=== PATIENT | female | born 1980 | race American Indian/Alaskan Native ===

== ENCOUNTER 2016-06-27 16:47 | Emergency (ER) | payer MEDICAID ==
[2016-06-27 16:47] VITALS: BMI 47.7
[2016-06-27 17:21] VITALS: BP 144/102; PULSE 104; RESP 20; TEMP 98.6; O2SAT 99
--- NOTE | 2016-06-27 18:01 | ED PDOC ---
HPI: Female Pain Time Seen by Provider: 06/27/16 17:42 Chief Complaint (Nursing): Female Genitourinary Chief Complaint (Provider): vaginal bleeding History Per: Patient (is female who presents for evaluation of persistent vaginal bleeding. It started 4 days ago as dried blood. Over the past 3 days she has notice blood only on wiping. She denies injuries or overexertion ( except for packing boxes for a move). Her last sexual activity was 2 days prior to onset of bleeding. ) Past Medical History Reviewed: Historical Data, Nursing Documentation, Vital Signs Vital Signs: Last Vital Signs Temp 98.6 F 06/27/16 17:20 Pulse 104 H 06/27/16 17:20 Resp 20 06/27/16 17:20 BP 144/102 H 06/27/16 17:20 Pulse Ox 99 06/27/16 17:20 - Medical History PMH: No Chronic Diseases, Mitral Valve Prolapse - Family History Family History: States: No Known Family Hx - Living Arrangements Living Arrangements: With Family - Social History Current smoker - smoking cessation education provided: No Alcohol: Social Drugs: Denies - Allergies Allergies/Adverse Reactions: Allergies Allergy/AdvReac Type Severity Reaction Status Date / Time No Known Allergies Allergy Verified 06/27/16 17:19 Review of Systems ROS Statement: Except As Marked, All Systems Reviewed And Found Negative Constitutional: Negative for: Fever, Chills Gastrointestinal: Negative for: Nausea, Vomiting, Abdominal Pain Genitourinary Female: Positive for: Vaginal Bleeding. Negative for: Dysuria, Frequency Physical Exam - Reviewed Nursing Documentation Reviewed: Yes Vital Signs Reviewed: Yes - Physical Exam Appears: Positive for: Well, Non-toxic, No Acute Distress Head Exam: Positive for: ATRAUMATIC, NORMAL INSPECTION, NORMOCEPHALIC Skin: Positive for: Normal Color, Warm, DRY Eye Exam: Positive for: EOMI, Normal appearance, PERRL ENT: Positive for: Normal ENT Inspection Neck: Positive for: Normal, Painless ROM Cardiovascular/Chest: Positive for: Regular Rate, Rhythm Respiratory: Positive for: CNT, Normal Breath Sounds Gastrointestinal/Abdominal: Positive for: Normal Exam, Bowel Sounds, Soft Back: Positive for: Normal Inspection Extremity: Positive for: Normal ROM Neurologic/Psych: Positive for: Alert, Oriented - Laboratory Results Result Diagrams: 06/27/16 18:05 04/05/17 19:01 - ECG O2 Sat by Pulse Oximetry: 99 Disposition - Clinical Impression Clinical Impression: Vaginal bleeding in patient at less than 20 weeks gestation - Patient ED Disposition Is Patient to be Admitted: No Doctor Will See Patient In The: Office Counseled Patient/Family Regarding: Diagnosis, Need For Followup - Disposition Disposition: Routine/Home Disposition Time: 21:33 Condition: STABLE Instructions: First Trimester Vaginal Bleed (ED) - POA Present On Arrival: None
[2016-06-27 19:14] LABS: BASO # 0.1 K/uL (0.0-0.2); BASO % 0.5 % (0.0-2.0); EOS # 0.2 K/uL (0.0-0.7); EOS % 2.1 % (0.0-4.0); HEMATOCRIT 35.1 % (34.0-47.0); LYMPH # 1.9 K/uL (1.0-4.3); LYMPH % 18.3 % (20.0-40.0); MEAN CELL VOLUME 79.9 fl (81.0-99.0); MEAN CORPUSCULAR HEMOGLOBIN 25.6 pg (27.0-31.0); MEAN CORPUSCULAR HGB CONC 32.1 g/dL (33.0-37.0); MEAN PLATELET VOLUME 7.9 fl (7.2-11.7); MONO # 0.7 K/uL (0.0-0.8); MONO % 7.2 % (0.0-10.0); NEUT # 7.4 K/uL (1.8-7.0); NEUT % 71.9 % (50.0-75.0); RED CELL DISTRIBUTION WIDTH 15.5 % (11.5-14.5); WHITE BLOOD COUNT 10.4 K/uL (4.8-10.8)
[2016-06-27 19:26] LABS: BLOOD UREA NITROGEN 14 mg/dl (7-17); CALCIUM 8.8 mg/dL (8.4-10.2); CARBON DIOXIDE 22 mmol/L (22-30); CHLORIDE 103 mmol/L (98-107); GFR AFRICAN-AMERICAN > 60; GLUCOSE,RANDOM 82 mg/dL (65-105); SODIUM 140 mmol/l (132-148)
[2016-06-27 19:33] LABS: POTASSIUM 5.6 MMOL/L (3.6-5.0)
--- NOTE | 2016-06-27 21:03 | US ---
EXAM: US , Transvaginal CLINICAL HISTORY: 36 years old, female; Signs and symptoms; Lmp or gestational age (in weeks): 05/08/16; Antepartum complications; Hemorrhage; ; Additional info: Vaginal bleeding, 7 weeks by date TECHNIQUE: Real-time transvaginal obstetrical ultrasound of the maternal pelvis and a first trimester with image documentation. Transvaginal imaging was used for better evaluation of the fetus and adnexa. EXAM DATE/TIME: 06/27/2016 5:51 PM COMPARISON: There are no prior studies for comparison. FINDINGS: Uterus: Uterus measures approximately 10 x 6 x 7 cm. Cervix measures approximately 5 cm in length. There is a small nabothian cyst in the cervix. There is a 2.3 x 1.8 cm partially calcified posterior fibroid. Gestation: There is a single intrauterine gestation. Gestational sac has mean diameter 9.9 mm. pole and yolk sac are not yet visible. Right ovary: Right ovary measures approximately 2.64 x 1.79 x 2.56 cm.There are multiple small follicles. There is expected blood flow on Doppler imaging Left ovary: Left ovary could not be identified. Adnexa: There are no adnexal masses. There is no free fluid IMPRESSION: Intrauterine gestation too early to date
== END 2016-06-27 21:57 | disposition home or self-care (01) ==
LOC: H.ER 16:47
DX: O20.9 Hemorrhage in early pregnancy, unspecified (principal)

== ENCOUNTER 2016-07-04 22:12 | Observation (INO) | payer SELFPAY ==
[2016-07-04 22:12] VITALS: BMI 47.7
[2016-07-04 22:46] VITALS: BP 140/94; PULSE 103; RESP 16; TEMP 98.5; O2SAT 100
--- NOTE | 2016-07-04 23:23 | ED PDOC ---
HPI: Female Pain Time Seen by Provider: 07/04/16 23:02 Chief Complaint (Nursing): Female Genitourinary Chief Complaint (Provider): Vaginal bleeding History Per: Patient History/Exam Limitations: no limitations Onset/Duration Of Symptoms: Days (Today) Additional Complaint(s): Vaginal bleeding today. More then last time. No pelvic pain, dyspnea, nausea, vomit, diarrhea, dizziness. Here 1 week ago. Is 8 wks preg. Past Medical History Reviewed: Nursing Documentation, Vital Signs Vital Signs: Last Vital Signs Temp 98.5 F 07/04/16 22:44 Pulse 103 H 07/04/16 22:44 Resp 16 07/04/16 22:44 BP 140/94 H 07/04/16 22:44 Pulse Ox 100 07/04/16 22:44 - Medical History PMH: No Chronic Diseases, Mitral Valve Prolapse - Surgical History Surgical History: No Surg Hx - Family History Family History: States: Unknown Family Hx - Social History Current smoker - smoking cessation education provided: No Alcohol: None Drugs: Denies - Allergies Allergies/Adverse Reactions: Allergies Allergy/AdvReac Type Severity Reaction Status Date / Time No Known Allergies Allergy Verified 06/27/16 17:19 Review of Systems ROS Statement: Except As Marked, All Systems Reviewed And Found Negative Genitourinary Female: Positive for: Vaginal Bleeding Physical Exam - Reviewed Nursing Documentation Reviewed: Yes Vital Signs Reviewed: Yes - Physical Exam Appears: Positive for: Well, Non-toxic, No Acute Distress Head Exam: Positive for: ATRAUMATIC, NORMAL INSPECTION, NORMOCEPHALIC Skin: Positive for: Normal Color, Warm, DRY Eye Exam: Positive for: EOMI, Normal appearance, PERRL ENT: Positive for: Normal ENT Inspection Neck: Positive for: Normal, Painless ROM Cardiovascular/Chest: Positive for: Regular Rate, Rhythm Respiratory: Positive for: CNT, Normal Breath Sounds Gastrointestinal/Abdominal: Positive for: Normal Exam, Bowel Sounds, Soft. Negative for: Tenderness Back: Positive for: Normal Inspection. Negative for: L CVA Tenderness, R CVA Tenderness Extremity: Positive for: Normal ROM. Negative for: Tenderness, Pedal Edema Neurologic/Psych: Positive for: Alert, Oriented - ECG O2 Sat by Pulse Oximetry: 100 - Progress ED Course And Treament: 2340: Dr. Garsia to fu on labs and imaging. ED OBSERVATION Date of observation admission: 07/04/16 Time of observation admission: 23:23 - Observation admission statement Patient is being placed in observation because:: vaginal bleeding - Goals of Observation Goals of observation are:: bleeding eval Disposition - Clinical Impression Clinical Impression: Vaginal bleeding in patient at less than 20 weeks gestation - Patient ED Disposition Is Patient to be Admitted: Transfer of Care - Disposition Disposition: Transfer of Care Disposition Time: 23:24 Condition: STABLE Patient Signed Over To: Bradley Garsia
[2016-07-04 23:54] LABS: BASO # 0.1 K/uL (0.0-0.2); BASO % 0.6 % (0.0-2.0); EOS # 0.3 K/uL (0.0-0.7); EOS % 2.4 % (0.0-4.0); HEMATOCRIT 35.6 % (34.0-47.0); LYMPH # 2.5 K/uL (1.0-4.3); LYMPH % 20.8 % (20.0-40.0); MEAN CELL VOLUME 80.9 fl (81.0-99.0); MEAN CORPUSCULAR HEMOGLOBIN 24.8 pg (27.0-31.0); MEAN CORPUSCULAR HGB CONC 30.6 g/dL (33.0-37.0); MEAN PLATELET VOLUME 7.6 fl (7.2-11.7); MONO % 8.5 % (0.0-10.0); NEUT # 8.1 K/uL (1.8-7.0); NEUT % 67.7 % (50.0-75.0); RED CELL DISTRIBUTION WIDTH 15.7 % (11.5-14.5)
[2016-07-05 00:06] LABS: ALKALINE PHOSPHATASE 94 U/L (38-126); ALT/SGPT 19 U/L (9-52); AST/SGOT 38 U/L (14-36); BLOOD UREA NITROGEN 12 mg/dl (7-17); CALCIUM 8.9 mg/dL (8.4-10.2); CARBON DIOXIDE 22 mmol/L (22-30); CHLORIDE 106 mmol/L (98-107); GFR AFRICAN-AMERICAN > 60; GLUCOSE,RANDOM 86 mg/dL (65-105); POTASSIUM 3.8 MMOL/L (3.6-5.0); SODIUM 142 mmol/l (132-148)
--- NOTE | 2016-07-05 00:21 | ED PDOC ---
- Laboratory Results Result Diagrams: 07/04/16 23:49 07/04/16 23:49 - ECG O2 Sat by Pulse Oximetry: 100 Medical Decision Making Medical Decision Makin;00 patient signed out to me by Dr. Muñoz. pending US 2;[address] 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 Advised that pt follow up in 48 hours for repeat beta for a likely miscarriage or possible ectopic . Patient will follow up in 48 hrs for repeat testing. Discussed results and plan with patient who expresses understanding. Counseling was provided regarding the diagnosis and prognosis. All questions answered and there is agreement with the plan to discharge home with instructions. Patient stable for discharge. Return if symptoms persist or worsen. Addendum created by Zena Childs MD on 07/05/2016 1:53 AM Eastern Time ([place] & [place]) Findings were discussed with Dr. Garsia on 07/05/2016 at 1:52 AM EDT. Initial Report created on 07/05/2016 1:49 AM Eastern Time ([place] & [place]) EXAM: US , Transvaginal CLINICAL HISTORY: 36 years old, female; Signs and symptoms; Lmp or gestational age (in weeks): ; Antepartum complications; Hemorrhage; Additional info: Preg and pain TECHNIQUE: Real-time transvaginal obstetrical ultrasound of the maternal pelvis and a first trimester with image documentation. Transvaginal imaging was used for better evaluation of the fetus and adnexa. EXAM DATE/TIME: 07/04/2016 11:17 PM COMPARISON: Prior ultrasound of 06/27/2016 FINDINGS: Uterus: Measures 10.3 x 5.8 x 7.0 cm. Again seen is a small, round cystic area in the uterus, now measuring 9.6 x 6.9 x 6.9 mm (previously 11 x 9.7 x 8.7 mm). This does not appear to contain a pole or normal yolk sac. If this is a gestational sac, it would correspond to an estimated gestational age of approximately 5 weeks. There is a crescent-shaped area seen in the uterus abutting this, measuring 8.9 mm maximally, which could represent a small subchorionic hemorrhage. Again seen abutting the uterus posteriorly is a rounded, masslike area, with an echogenic peripheral rim, associated with posterior shadowing. This is most likely a peripherally calcified, exophytic subserosal uterine fibroid. It measures 2.4 cm cm maximally. Cervix appears closed. Right ovary: Measures 3.4 x 2.4 x 3.1 cm. Flow seen in the right ovary on color and Doppler imaging, with no evidence of torsion. Right adnexa: Directly abutting the right ovary is a cystic mass measuring 1.2 x 0.6 x 0.5 cm. This is oval-shaped, and it appears minimally complex, containing thin internal echogenic septations. It does not have increased peripheral vascularity on color imaging. Left ovary: Could not be visualized. Free fluid: None seen. IMPRESSION: Small (7.8 mm) round, cystic area again seen within the uterus. This could represent an abnormal gestational sac or a pseudo-sac. It is decreased in size compared to an ultrasound one week prior, an abnormal finding, and there may be an adjacent subchorionic hemorrhage. No pole or yolk sac is seen. Small 1.2 x 0.6 cm right adnexal cystic lesion, abutting the right ovary. This could represent a paraovarian cyst, but cannot rule out a small right adnexal ectopic . Recommend correlation with quantitative beta hCG levels and clinical presentation. Left ovary could not be visualized. See above for remaining findings Disposition Counseled Patient/Family Regarding: Studies Performed, Diagnosis, Need For Followup - Clinical Impression Clinical Impression: Vaginal bleeding in patient at less than 20 weeks gestation - POA Present On Arrival: None - Disposition Disposition: Routine/Home Disposition Time: 02:00 Condition: STABLE
--- NOTE | 2016-07-05 01:49 | US ---
EXAM: US , Transvaginal CLINICAL HISTORY: 36 years old, female; Signs and symptoms; Lmp or gestational age (in weeks): 05/08/16; Antepartum complications; Hemorrhage; Additional info: Preg and pain TECHNIQUE: Real-time transvaginal obstetrical ultrasound of the maternal pelvis and a first trimester with image documentation. Transvaginal imaging was used for better evaluation of the fetus and adnexa. EXAM DATE/TIME: 07/04/2016 11:17 PM COMPARISON: Prior ultrasound of 06/27/2016 FINDINGS: Uterus: Measures 10.3 x 5.8 x 7.0 cm. Again seen is a small, round cystic area in the uterus, now measuring 9.6 x 6.9 x 6.9 mm (previously 11 x 9.7 x 8.7 mm). This does not appear to contain a pole or normal yolk sac. If this is a gestational sac, it would correspond to an estimated gestational age of approximately 5 weeks. There is a crescent-shaped area seen in the uterus abutting this, measuring 8.9 mm maximally, which could represent a small subchorionic hemorrhage. Again seen abutting the uterus posteriorly is a rounded, masslike area, with an echogenic peripheral rim, associated with posterior shadowing. This is most likely a peripherally calcified, exophytic subserosal uterine fibroid. It measures 2.4 cm cm maximally. Cervix appears closed. Right ovary: Measures 3.4 x 2.4 x 3.1 cm. Flow seen in the right ovary on color and Doppler imaging, with no evidence of torsion. Right adnexa: Directly abutting the right ovary is a cystic mass measuring 1.2 x 0.6 x 0.5 cm. This is oval-shaped, and it appears minimally complex, containing thin internal echogenic septations. It does not have increased peripheral vascularity on color imaging. Left ovary: Could not be visualized. Free fluid: None seen. IMPRESSION: Small (7.8 mm) round, cystic area again seen within the uterus. This could represent an abnormal gestational sac or a pseudo-sac. It is decreased in size compared to an ultrasound one week prior, an abnormal finding, and there may be an adjacent subchorionic hemorrhage. No pole or yolk sac is seen. Small 1.2 x 0.6 cm right adnexal cystic lesion, abutting the right ovary. This could represent a paraovarian cyst, but cannot rule out a small right adnexal ectopic . Recommend correlation with quantitative beta hCG levels and clinical presentation. Left ovary could not be visualized. See above for remaining findings.
== END 2016-07-05 02:14 | disposition home or self-care (01) ==
LOC: H.ER 22:12 → H.EROBSV 23:17
PROVIDERS: ADMIT Emergency Medicine; ATTEND Emergency Medicine
DX: O20.9 Hemorrhage in early pregnancy, unspecified (principal); Z3A.08 8 weeks gestation of pregnancy
CPT/HCPCS: 76817; 80053; 84702; 85025; 99281; G0378

== ENCOUNTER 2016-07-09 17:08 | Emergency (ER) | payer MEDICAID ==
[2016-07-09 17:08] VITALS: BMI 47.7
[2016-07-09 17:59] VITALS: O2SAT 99
--- NOTE | 2016-07-09 19:19 | ED PDOC ---
HPI: General Adult Time Seen by Provider: 07/09/16 18:12 Chief Complaint (Nursing): Female Genitourinary Chief Complaint (Provider): Follow up History Per: Patient Additional Complaint(s): Pt. states on 07/04/16 she came to ED as she was having vaginal bleeding and pelvic cramping. Pt. is . She had US done and was informed that she is likely miscarrying but a "tubal " was also possible. Over the weekend she passed clots. 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 Symptoms have resolved. Denies N/V/D, fever, hx ectopic , abdominal pain. Past Medical History Reviewed: Historical Data, Nursing Documentation, Vital Signs Vital Signs: Last Vital Signs Temp 98.4 F 07/09/16 17:54 Pulse 102 H 07/09/16 17:54 Resp 18 07/09/16 17:54 BP 140/89 07/09/16 17:54 Pulse Ox 99 07/09/16 19:20 - Medical History PMH: Mitral Valve Prolapse - Family History Family History: States: No Known Family Hx - Allergies Allergies/Adverse Reactions: Allergies Allergy/AdvReac Type Severity Reaction Status Date / Time No Known Allergies Allergy Verified 06/27/16 17:19 Review of Systems ROS Statement: Except As Marked, All Systems Reviewed And Found Negative Physical Exam - Reviewed Nursing Documentation Reviewed: Yes Vital Signs Reviewed: Yes - Physical Exam Appears: Positive for: Well, Non-toxic, No Acute Distress Head Exam: Positive for: ATRAUMATIC, NORMAL INSPECTION, NORMOCEPHALIC Skin: Positive for: Normal Color, Warm. Negative for: Rash Eye Exam: Positive for: Normal appearance Neck: Positive for: Normal Cardiovascular/Chest: Positive for: Regular Rate, Rhythm Respiratory: Positive for: CNT, Normal Breath Sounds Gastrointestinal/Abdominal: Positive for: Normal Exam, Soft. Negative for: Tenderness Back: Positive for: Normal Inspection. Negative for: L CVA Tenderness, R CVA Tenderness Extremity: Positive for: Normal ROM Neurologic/Psych: Positive for: Alert, Oriented - Laboratory Results Result Diagrams: 07/09/16 19:00 07/09/16 19:00 Urine POC: Positive Urine dip results: Positive for: Leukocyte Esterase (small), Blood (large), Protein (30). Negative for: Nitrate, Ketones, Glucose, Bilirubin - ECG O2 Sat by Pulse Oximetry: 99 - Progress ED Course And Treament: Labs ordered. US ordered. Disposition - Clinical Impression Clinical Impression: Vaginal bleeding in patient at less than 20 weeks gestation - Patient ED Disposition Is Patient to be Admitted: Transfer of Care (Signed out to Praveen STAUFFER pending US results.) - Disposition Disposition Time: 20:00 Condition: STABLE
[2016-07-09 19:31] LABS: BASO # 0.1 K/uL (0.0-0.2); BASO % 0.8 % (0.0-2.0); EOS # 0.2 K/uL (0.0-0.7); EOS % 2.7 % (0.0-4.0); HEMATOCRIT 27.2 % (34.0-47.0); LYMPH # 2.1 K/uL (1.0-4.3); LYMPH % 23.6 % (20.0-40.0); MEAN CELL VOLUME 80.4 fl (81.0-99.0); MEAN CORPUSCULAR HEMOGLOBIN 25.8 pg (27.0-31.0); MEAN CORPUSCULAR HGB CONC 32.1 g/dL (33.0-37.0); MEAN PLATELET VOLUME 7.6 fl (7.2-11.7); MONO # 0.4 K/uL (0.0-0.8); MONO % 4.6 % (0.0-10.0); NEUT # 6.1 K/uL (1.8-7.0); NEUT % 68.3 % (50.0-75.0); NRBC % 0.1 % (0.0-0.0); RED CELL DISTRIBUTION WIDTH 15.6 % (11.5-14.5)
[2016-07-09 19:45] LABS: ALB/GLOB RATIO 1.1 (1.0-2.1); ALKALINE PHOSPHATASE 92 U/L (38-126); ALT/SGPT 26 U/L (9-52); AST/SGOT 28 U/L (14-36); BILIRUBIN,TOTAL 0.6 mg/dl (0.2-1.3); BLOOD UREA NITROGEN 14 mg/dl (7-17); CALCIUM 8.9 mg/dL (8.4-10.2); CARBON DIOXIDE 23 mmol/L (22-30); CHLORIDE 106 mmol/L (98-107); GFR AFRICAN-AMERICAN > 60; GLUCOSE,RANDOM 111 mg/dL (65-105); POTASSIUM 3.4 MMOL/L (3.6-5.0); SODIUM 143 mmol/l (132-148); TOTAL PROTEIN 7.6 G/DL (6.3-8.2)
--- NOTE | 2016-07-09 22:51 | ED PDOC ---
- Laboratory Results Result Diagrams: 07/09/16 19:00 07/09/16 19:00 Urine POC: Positive - ECG O2 Sat by Pulse Oximetry: 99 Medical Decision Making Medical Decision Making: Pt is no longer bleeding. Pt denies feeling weak or lightheaded. Discussed US results and drop in beta Hcg. F.u with SWIMMING PROFESSOR for labs and BHCG of zero to make sure there are no retained products. Disposition - Clinical Impression Clinical Impression: Miscarriage - POA Present On Arrival: None - Disposition [facility] Disposition: Routine/Home Disposition Time: 22:51 Condition: GOOD Additional Instructions: Please follow-up with SWIMMING PROFESSOR for evaluation to ensure no retained products. Instructions: Spontaneous Miscarriage (ED)
[2016-07-09 23:02] VITALS: BP 130/73; PULSE 75; RESP 17; TEMP 98.2
--- NOTE | 2016-07-10 09:56 | US ---
HISTORY: vaginal bleeding COMPARISON: None available. Comparison is made to the previous study dated 07/04/2016 TECHNIQUE: FINDINGS: UTERUS: Measures 10.7 x 6 x 5.8 cm. Normal in size and appearance. There is 2 x 1.7 x 1.4 centimeter calcified left posterior uterine wall lesion likely represent calcified fibroid. ENDOMETRIUM: Measures 12.6 mm in diameter. Unremarkable. CERVIX: No cervical abnormality identified. RIGHT OVARY: Measures 3.2 x 2 x 2.3 cm. No solid mass. Normal flow. LEFT OVARY: Left ovary was not visualized . FREE FLUID: No significant free fluid noted. OTHER FINDINGS: None. IMPRESSION: No evidence of intrauterine gestational sac pole or heart activity. Nonvisualized left ovary. No definite evidence of ectopic . Correlation with beta HCG level and if indicated close follow-up reassessment may be obtained. Preliminary report was submitted by [facility].
== END 2016-07-09 23:03 | disposition home or self-care (01) ==
LOC: H.ER 17:08
DX: O03.9 Complete or unspecified spontaneous abortion without complication (principal)

== ENCOUNTER 2016-09-02 19:47 | Inpatient (IN) | payer MEDICAID ==
[2016-09-02 19:48] VITALS: BMI 47.7
--- NOTE | 2016-09-02 21:20 | ED PDOC ---
HPI: SOB/CHF/COPD Time Seen by Provider: 09/02/16 20:08 Chief Complaint (Nursing): Shortness Of Breath Chief Complaint (Provider): shortness of breath History Per: Patient History/Exam Limitations: no limitations Onset/Duration Of Symptoms: Days (2 months), Gradual, Persistent Associated Symptoms: Productive Cough (clear), Light-headedness. denies: Fever , Chills, Chest Pain, Bloody Cough, Ankle/Leg Swelling Additional Complaint(s): Cough started 2 days ago and unable to sleep well due to cough +dyspnea on exertion Symptoms around the same time she had a miscarriage. Past Medical History Reviewed: Historical Data, Nursing Documentation, Vital Signs Vital Signs: Last Vital Signs Temp 98.6 F 09/03/16 12:00 Pulse 100 H 09/03/16 12:00 Resp 18 09/03/16 12:00 BP 125/84 09/03/16 12:00 Pulse Ox 95 09/03/16 12:00 - Medical History PMH: Mitral Valve Prolapse - Surgical History Surgical History: No Surg Hx - Family History Family History: States: Diabetes, Hypertension - Living Arrangements Living Arrangements: With Family - Social History Current smoker - smoking cessation education provided: No - Home Medications Home Medications: Ambulatory Orders Medication Instructions Recorded No Known Home Med 09/03/16 - Allergies Allergies/Adverse Reactions: Allergies Allergy/AdvReac Type Severity Reaction Status Date / Time No Known Allergies Allergy Verified 06/27/16 17:19 Review of Systems ROS Statement: Except As Marked, All Systems Reviewed And Found Negative (and as per HPI) Cardiovascular: Positive for: Light Headedness. Negative for: Chest Pain Respiratory: Positive for: Cough, Shortness of Breath, SOB with Exertion Gastrointestinal: Positive for: Vomiting Physical Exam - Reviewed Nursing Documentation Reviewed: Yes Vital Signs Reviewed: Yes - Physical Exam Appears: Positive for: Non-toxic, In Acute Distress Head Exam: Positive for: ATRAUMATIC, NORMOCEPHALIC Skin: Positive for: Warm, Dry Eye Exam: Positive for: EOMI, PERRL ENT: Negative for: Pharyngeal Erythema, Tonsillar Exudate Neck: Positive for: Painless ROM, Supple Cardiovascular/Chest: Positive for: Chest Non Tender, Tachycardia. Negative for : Edema, Murmur Respiratory: Positive for: Accessory Muscle Use, Rhonchi, Wheezing Gastrointestinal/Abdominal: Positive for: Soft. Negative for: Tenderness Back: Positive for: Normal Inspection. Negative for: Vertebral Tenderness Extremity: Positive for: Normal ROM. Negative for: Pedal Edema Lymphatic: Negative for: Adenopathy Neurologic/Psych: Positive for: Alert. Negative for: Motor/Sensory Deficits - Laboratory Results Result Diagrams: 09/03/16 05:45 09/03/16 05:45 - ECG ECG: Positive for: Interpreted By Me ECG Rhythm: Positive for: Normal QRS, Normal ST Segment, Sinus Rhythm, Sinus Tachycardia, Nonspecific Changes O2 Sat by Pulse Oximetry: 100 Pulse Ox Interpretation: Normal Medical Decision Making Medical Decision Making: Dyspnea and cough Ddx include but no limited to pneumonia, bronchitis, PE, CHF, pleural effusion CXR demonstrates globular heart and perihilar haziness, new compared with CXR from 2013 ddimer and [address] CT chest ordered Accession No. : [id number] Patient Name / ID : PB FERNÁNDEZ / [id number] Exam Date : 09/02/2016 22:22:25 ( Approved ) Study Comment : Sex / Age : F / 36Y Creator : KJ ALMONTE Dictator : Aerosol Line Operator : Microgrinder Operator : KJ ALMONTE Approver2 : Report Date : 09/02/2016 23:01:00 My Comment : [facility] Division of Radiology [address] [place] [address] Tel. no. Patient Name: JOLENE AMBRIZ Pt. Address: [address] [place] [address] Rec #: [id number] [place] [address]: Satya WALDRON, Qi Sanchez Pt CELL Order Location: [facility] : 1980 Female Age: 36 Order #: [id number] Reason for exam: sob elevated ddimer r/o PE CT Scan ANGIO CHEST PE PROTOCOL Exam Date: 09/02/16 This imaging exam was performed at [facility] EXAM: CT Angiography Chest With Intravenous Contrast CLINICAL HISTORY: 36 years old, female; Pain and signs and symptoms; Shortness of breath; Other: Cp; Patient HX: SOB. Mitral valve prolapse. Dm HTN obese; Additional info: SOB elevated d dimer R/O pe. Best exam obtained due to pt's condition. Pt states pain by needle site no no swelling no infiltration nor skin cold temperature. TECHNIQUE: Axial computed tomographic angiography images of the chest with intravenous contrast using pulmonary embolism protocol. This CT exam was performed using one or more of the following dose reduction techniques: automated exposure control, adjustment of the mA and/or kV according to patient size, and/or use of iterative reconstruction technique. MIP reconstructed images were created and reviewed. Coronal and sagittal reformatted images were created and reviewed. CONTRAST: 98 mL of VISIPAQUE administered intravenously. COMPARISON: CT CHEST W/ 12/30/2007 10:36:28 AM FINDINGS: Pulmonary arteries: There is enlargement of the pulmonary artery segment and left and right main pulmonary arteries, raising the possibility of pulmonary arterial hypertension. No evidence for large or central pulmonary embolism. Suboptimal opacification Limited evaluation of smaller branches. Aorta: Thoracic aorta is unremarkable. No thoracic aortic aneurysm. Lungs: The visualized portions of the lung apices are normal. There is minimal bibasilar atelectasis. No mass. Pleural space: The lungs are free of consolidation, pleural effusion or pneumothorax. Heart: The heart is mildly enlarged. No significant pericardial effusion. No evidence of RV dysfunction. Mediastinum: Small hiatal hernia. Thyroid: The thyroid is normal in size and position. Bones/joints: No acute fracture. No dislocation. Soft tissues: Unremarkable. Lymph nodes: There is no visible axillary adenopathy. No mediastinal or hilar adenopathy. IMPRESSION: 1. Small hiatal hernia. 2. There is enlargement of the pulmonary artery segment and left and right main pulmonary arteries, raising the possibility of pulmonary arterial hypertension. 3. No evidence for large or central pulmonary embolism. Suboptimal opacification Limited evaluation of smaller branches. 4. Additional incidental and/or chronic findings as described. Dictated By: Kj Almonte MD, MD Dictated Date/Time: 09/02/162300 Signed By: Kj Almonte MD Date Signed: 2300 Transcribed By: VRAD Transcribe Date/Time : 09/02/162300 ZELALEM/VIET DW pt findings. When she was following with a snowboard instructor (2 years ago) she had been put on Lasix and enalipril. This snowboard instructor recommended surgical treatment for severe MVP but CT surgeon recommended to wait. She did not follow up after that, nor did she continue with medication. She had exacerbation of her cardiac issues twice in the past, both related to pregnancies. Pt to be hospitalized for stabilization of what appears to be acute worsening of MVP, possibly MVR. Disposition - Clinical Impression Clinical Impression: Pulmonary hypertension, Dyspnea Discussed With Dr.: Mickey Rivas Doctor Will See Patient In The: ED Counseled Patient/Family Regarding: Studies Performed, Diagnosis - Disposition Disposition Time: 23:00 Condition: GUARDED - Pt Status Changed To: Hospital Disposition Of: Inpatient - Admit Certification Admit to Inpatient:: After my assessment, the patient will require hospitalization for at least two midnights. This is because of the severity of symptoms shown, intensity of services needed, and/or the medical risk in this patient being treated as an outpatient. - POA Present On Arrival: None
[2016-09-02 21:27] LABS: BASO # 0.1 K/uL (0.0-0.2); BASO % 0.5 % (0.0-2.0); EOS # 0.5 K/uL (0.0-0.7); EOS % 3.6 % (0.0-4.0); HEMATOCRIT 31.1 % (34.0-47.0); LYMPH # 1.7 K/uL (1.0-4.3); LYMPH % 12.3 % (20.0-40.0); MEAN CELL VOLUME 70.7 fl (81.0-99.0); MEAN CORPUSCULAR HEMOGLOBIN 21.3 pg (27.0-31.0); MEAN CORPUSCULAR HGB CONC 30.1 g/dL (33.0-37.0); MEAN PLATELET VOLUME 7.8 fl (7.2-11.7); MONO # 0.8 K/uL (0.0-0.8); MONO % 6.3 % (0.0-10.0); NEUT # 10.4 K/uL (1.8-7.0); NEUT % 77.3 % (50.0-75.0); RED CELL DISTRIBUTION WIDTH 17.8 % (11.5-14.5); WHITE BLOOD COUNT 13.5 K/uL (4.8-10.8)
[2016-09-02 21:38] LABS: ALB/GLOB RATIO 1.2 (1.0-2.1); ALKALINE PHOSPHATASE 111 U/L (38-126); ALT/SGPT 35 U/L (9-52); AST/SGOT 32 U/L (14-36); BILIRUBIN,TOTAL 1.1 mg/dl (0.2-1.3); BLOOD UREA NITROGEN 15 mg/dl (7-17); CALCIUM 9.1 mg/dL (8.4-10.2); CARBON DIOXIDE 25 mmol/L (22-30); CHLORIDE 104 mmol/L (98-107); GFR AFRICAN-AMERICAN > 60; GLUCOSE,RANDOM 83 mg/dL (65-105); MAGNESIUM 2.1 MG/DL (1.6-2.3); PHOSPHOROUS 3.4 mg/dl (2.5-4.5); POTASSIUM 3.4 MMOL/L (3.6-5.0); SODIUM 140 mmol/l (132-148); TOTAL PROTEIN 8.2 G/DL (6.3-8.2)
[2016-09-02] MEDS ORDERED: Iodixanol 320 MG/ML 100 ML BOTTLE IV ONE (22:07)
[2016-09-02] MEDS ORDERED: Sodium Chloride 0.9% 100 ML ONE (22:07)
[2016-09-02 22:08] LABS: THYROID STIMULATING HORMONE 1.14 mIU/ML (0.46-4.68)
--- NOTE | 2016-09-02 23:02 | CT ---
EXAM: CT Angiography Chest With Intravenous Contrast CLINICAL HISTORY: 36 years old, female; Pain and signs and symptoms; Shortness of breath; Other: Cp; Patient HX: SOB. Mitral valve prolapse. Dm HTN obese; Additional info: SOB elevated d dimer R/O pe. Best exam obtained due to pt's condition. Pt states pain by needle site no no swelling no infiltration nor skin cold temperature. TECHNIQUE: Axial computed tomographic angiography images of the chest with intravenous contrast using pulmonary embolism protocol. This CT exam was performed using one or more of the following dose reduction techniques: automated exposure control, adjustment of the mA and/or kV according to patient size, and/or use of iterative reconstruction technique. MIP reconstructed images were created and reviewed. Coronal and sagittal reformatted images were created and reviewed. CONTRAST: 98 mL of VISIPAQUE administered intravenously. COMPARISON: CT CHEST W/ 12/30/2007 10:36:28 AM FINDINGS: Pulmonary arteries: There is enlargement of the pulmonary artery segment and left and right main pulmonary arteries, raising the possibility of pulmonary arterial hypertension. No evidence for large or central pulmonary embolism. Suboptimal opacification Limited evaluation of smaller branches. Aorta: Thoracic aorta is unremarkable. No thoracic aortic aneurysm. Lungs: The visualized portions of the lung apices are normal. There is minimal bibasilar atelectasis. No mass. Pleural space: The lungs are free of consolidation, pleural effusion or pneumothorax. Heart: The heart is mildly enlarged. No significant pericardial effusion. No evidence of RV dysfunction. Mediastinum: Small hiatal hernia. Thyroid: The thyroid is normal in size and position. Bones/joints: No acute fracture. No dislocation. Soft tissues: Unremarkable. Lymph nodes: There is no visible axillary adenopathy. No mediastinal or hilar adenopathy. IMPRESSION: 1. Small hiatal hernia. 2. There is enlargement of the pulmonary artery segment and left and right main pulmonary arteries, raising the possibility of pulmonary arterial hypertension. 3. No evidence for large or central pulmonary embolism. Suboptimal opacification Limited evaluation of smaller branches. 4. Additional incidental and/or chronic findings as described.
[2016-09-03] MEDS ORDERED: Potassium Chloride 20 mEq ER Tab PO ONE ×3 (00:37→23:36)
--- NOTE | 2016-09-03 00:57 | CP.PCM.HP ---
History of Present Illness - History of Present Illness History of Present Illness: CC: SOB, orthopnea HPI: This is a 36 y/o female with MHx significant for MVP and it appears for pulmonary HTN who comes in with c/o SOB and orthopnea worsening over the past 2 days. She states that the breathing symptoms have been going on for several weeks, but just suddenly got worse. She does have a dry, nonproductive cough. Denies CP. Denies LE swelling. Denies f/c/n/v/d. State she was followed by a Dr. Gurdeep Huerta in the past for her pulm htn, and was apparently on medications , but has not seen that doctor or taken the medications in > 6 months. ROS: 14 systems reviewed, negative other than HPI MHx: MVP, pulmonary HTN; multiple miscarriages in the past SHx: None Allergies: NKDA Medications: None Family Hx: F- arthritis, DM2, CHF Social Hx: Lives with family, no tobacco, no EtOH Present on Admission - Present on Admission Any Indicators Present on Admission: No Past Patient History - Infectious Disease Hx of Infectious Diseases: None - Past Social History Smoking Status: Never Smoked - CARDIAC Hx Mitral Valve Prolapse: Yes - PSYCHIATRIC Hx Substance Use: No - SURGICAL HISTORY Hx Surgeries: No - ANESTHESIA Hx Anesthesia: No Meds Allergies/Adverse Reactions: Allergies Allergy/AdvReac Type Severity Reaction Status Date / Time No Known Allergies Allergy Verified 06/27/16 17:19 Physical Exam - Constitutional Appears: No Acute Distress - Head Exam Head Exam: ATRAUMATIC, NORMOCEPHALIC - Eye Exam Eye Exam: EOMI, PERRL - ENT Exam ENT Exam: Mucous Membranes Moist - Neck Exam Neck exam: Positive for: Full Rom Additional comments: no JVD noted - Respiratory Exam Respiratory Exam: Rhonchi, NORMAL BREATHING PATTERN - Cardiovascular Exam Cardiovascular Exam: REGULAR RHYTHM, +S1, +S2 - GI/Abdominal Exam GI & Abdominal Exam: Normal Bowel Sounds, Soft - Extremities Exam Extremities exam: Positive for: full ROM, pedal edema - Neurological Exam Neurological exam: Alert, CN II-XII Intact, Oriented x3 - Psychiatric Exam Psychiatric exam: Normal Affect, Normal Mood - Skin Skin Exam: Dry, Warm Results - Vital Signs Recent Vital Signs: Last Vital Signs Temp 99.8 F H 09/02/16 19:51 Pulse 103 H 09/02/16 19:51 Resp 16 09/02/16 20:34 BP 169/100 H 09/02/16 23:32 Pulse Ox 100 09/02/16 23:59 - Labs Result Diagrams: 09/02/16 21:05 09/02/16 21:05 - EKG Data EKG Interpreted by: Myself EKG shows normal: Sinus rhythm - EKG Data EKG comments: [place] Abn - Imaging and Cardiology CT scan - chest Status: Report reviewed by me Assessment & Plan (1) Pulmonary hypertension Assessment and Plan: 36 y/o female with ?Pulm HTN coming in with dyspnea. Also noted to have slightly elevated WC and low grade fever. 1) Dyspnea/pulm HTN -Admit tele -Will continue to diurese; first treatment with lasix seemed to improve SOB -Echo in AM -Cardiology consult in AM -No clear sign of infection on imaging, thus will hold abx for now 2) Elevated WC, ?fever -Will check UA/Cx, f/u BCx -Tylenol for fever -Abx only if clear bacterial etiology 3) DVT PPx -- SQ Lovenox Status: Acute (2) DVT prophylaxis Status: Acute
[2016-09-03 01:05] LABS: RBC URINE 1 /hpf (0-3); URINE BILIRUBIN NEGATIVE (NEGATIVE); URINE BLOOD MODERATE (NEGATIVE); URINE COLOR COLORLESS (YELLOW); URINE GLUCOSE (UA) NEG (Normal); URINE KETONE NEGATIVE (NEGATIVE); URINE LEUKOCYTE ESTERASE NEG Leu/uL (Negative); URINE PROTEIN NEGATIVE (NEGATIVE); URINE UROBILINOGEN 0.2-1.0 mg/dL (0.2-1.0); WBC URINE < 1 /hpf (0-5)
[2016-09-03 07:41] LABS: BASO # 0.1 K/uL (0.0-0.2); BASO % 0.6 % (0.0-2.0); EOS # 0.5 K/uL (0.0-0.7); HEMATOCRIT 29.1 % (34.0-47.0); LYMPH # 1.5 K/uL (1.0-4.3); LYMPH % 12.3 % (20.0-40.0); MEAN CELL VOLUME 69.3 fl (81.0-99.0); MEAN CORPUSCULAR HEMOGLOBIN 21.5 pg (27.0-31.0); MEAN PLATELET VOLUME 7.9 fl (7.2-11.7); MONO % 7.6 % (0.0-10.0); NEUT # 9.5 K/uL (1.8-7.0); NEUT % 75.5 % (50.0-75.0); WHITE BLOOD COUNT 12.5 K/uL (4.8-10.8)
[2016-09-03 07:46] LABS: BLOOD UREA NITROGEN 12 mg/dl (7-17); CALCIUM 8.7 mg/dL (8.4-10.2); CARBON DIOXIDE 26 mmol/L (22-30); CHLORIDE 102 mmol/L (98-107); GFR AFRICAN-AMERICAN > 60; GLUCOSE,RANDOM 89 mg/dL (65-105); SODIUM 140 mmol/l (132-148)
[2016-09-03 07:49] LABS: POTASSIUM 3.1 MMOL/L (3.6-5.0)
[2016-09-03] MEDS: Enoxaparin 40 mg Syringe SC SCH (08:34)
--- NOTE | 2016-09-03 11:26 | RAD ---
HISTORY: cough COMPARISON: Comparison is made to the previous study dated 12/29/2012 TECHNIQUE: Chest PA and lateral FINDINGS: LUNGS: Prominent lung markings in the right more than left lungs. No evidence of focal consolidation. PLEURA: No significant pleural effusion identified. No pneumothorax apparent. CARDIOVASCULAR: Normal. OSSEOUS STRUCTURES: No significant abnormalities. VISUALIZED UPPER ABDOMEN: Normal. OTHER FINDINGS: None. IMPRESSION: Prominent lung markings. Correlate clinically for bronchitis. No radiographic evidence of pneumonia.
--- NOTE | 2016-09-03 13:56 | CARD ---
APPROVED REPORT EKG Measurement Heart [id number] <Conclusion> Sinus tachycardia Possible Left atrial enlargement Borderline ECG
--- NOTE | 2016-09-03 19:42 | CARD ---
APPROVED REPORT EXAM: Two-dimensional and M-mode echocardiogram with Doppler and color Doppler. Other Information Quality : GoodRhythm : NSR INDICATION Pulmonary Hypertention VSD 2D DIMENSIONS IVSd1.13 (0.7-1.1cm)LVDd5.70 (3.9-5.9cm) LVOT Diameter1.90 (1.8-2.4cm)PWd0.99 (0.7-1.1cm) IVSs1.33 (0.8-1.2cm)LVDs4.34 (2.5-4.0cm) FS (%) 23.9 %PWs1.17 (0.8-1.2cm) M-Mode DIMENSIONS Left Atrium (MM)5.63 (2.5-4.0cm)IVSd1.22 (0.7-1.1cm) Aortic Root2.84 (2.2-3.7cm)LVDd6.34 (4.0-5.6cm) Aortic Cusp Exc.2.31 (1.5-2.0cm)PWd1.00 (0.7-1.1cm) IVSs1.47 cmFS (%) 36 % LVDs4.06 (2.0-3.8cm)PWs1.47 cm Mitral Valve E/A ratio0.0 TDI E/Lateral E'0.0E/Medial E'0.0 Pulmonary Valve PV Peak Tobjxmwz23.4cm/s LEFT VENTRICLE The Left Ventricle is mildly dilated on the 2D study. There is normal left ventricular wall thickness. The left ventricular function is normal. The left ventricular ejection fraction is - 55%. There is normal LV segmental wall motion. The left ventricular diastolic function is normal. No left ventricle thrombus noted on this study. There is no ventricular septal defect visualized. There is no left ventricular aneurysm. There is no mass noted in the left ventricle. RIGHT VENTRICLE The right ventricle is normal size. There is normal right ventricular wall thickness. The right ventricular systolic function is normal. ATRIA The left atrium is severely dilated. There is no thrombus suspected in the left atrium. The right atrium size is normal. The interatrial septum is intact with no evidence for an atrial septal defect. AORTIC VALVE The aortic valve is normal in structure and function. No aortic regurgitation is present. There is no aortic valvular stenosis. MITRAL VALVE The mitral valve leaflets are mildly thickened. There is no evidence of mitral valve prolapse. There is no mitral valve stenosis. Mitral regurgitation is severe. TRICUSPID VALVE The tricuspid valve is normal in structure and function. There is mild tricuspid regurgitation. There is no tricuspid valve prolapse or vegetation. There is no tricuspid valve stenosis. PULMONIC VALVE The pulmonary valve is normal in structure and function. There is no pulmonic valvular regurgitation. GREAT VESSELS The aortic root is normal in size. The IVC is normal in size and collapses >50% with inspiration. PERICARDIAL EFFUSION The pericardium appears normal. There is no pleural effusion. <Conclusion> The Left Ventricle is mildly dilated on the 2D study. There is normal left ventricular wall thickness. The left ventricular function is normal with a LVEF of - 55%. The left atrium is severely dilated. The mitral valve is mildly thickened but not stenotic. There is severe mitral regurgitation. The aortic and tricuspid valves are normal. There is mild tricuspid regurgitation.
[2016-09-03 23:37] VITALS: RESP 20
[2016-09-04] MEDS ORDERED: Potassium Chloride 20 mEq ER Tab PO SCH (09:00)
--- NOTE | 2016-09-04 09:04 | CP.PCM.CON ---
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 Past Patient History - Infectious Disease Hx of Infectious Diseases: None - Past Medical History & Family History Past Medical History?: Yes - Past Social History Smoking Status: Never Smoked - CARDIAC Hx Mitral Valve Prolapse: Yes - PULMONARY Hx Respiratory Disorders: No - NEUROLOGICAL Hx Neurological Disorder: No - HEENT Hx HEENT Problems: No - RENAL Hx Chronic Kidney Disease: No - ENDOCRINE/METABOLIC Hx Endocrine Disorders: No - HEMATOLOGICAL/ONCOLOGICAL Hx Blood Disorders: No Hx AIDS: No Hx Human Immunodeficiency Virus (HIV): No - INTEGUMENTARY Hx Dermatological Problems: No - MUSCULOSKELETAL/RHEUMATOLOGICAL Hx Musculoskeletal Disorders: No Hx Falls: No - GASTROINTESTINAL Hx Gastrointestinal Disorders: No - GENITOURINARY/GYNECOLOGICAL Hx Genitourinary Disorders: No - PSYCHIATRIC Hx Psychophysiologic Disorder: No Hx Substance Use: No - SURGICAL HISTORY Hx Surgeries: No - ANESTHESIA Hx Anesthesia: No Hx Anesthesia Reactions: No Hx Malignant Hyperthermia: No Meds Allergies/Adverse Reactions: Allergies Allergy/AdvReac Type Severity Reaction Status Date / Time No Known Allergies Allergy Verified 06/27/16 17:19 - Medications Medications: Current Medications Acetaminophen (Tylenol 325mg Tab) 650 mg PO Q6 PRN PRN Reason: Fever >100.4 F Last Admin: 09/03/16 01:37 Dose: 650 mg Enoxaparin Sodium (Lovenox) 40 mg SC DAILY MEG PRN Reason: Protocol Last Admin: 09/03/16 08:34 Dose: 40 mg Furosemide (Lasix) 40 mg PO DAILY [facility] Potassium Chloride (K-Dur 20 Meq Er Tab) 20 meq PO DAILY [facility] Results - Vital Signs Recent Vital Signs: Last Vital Signs Temp 97.9 F 09/04/16 04:42 Pulse 87 09/04/16 04:42 Resp 20 09/04/16 04:42 BP 114/74 09/04/16 04:42 Pulse Ox 96 09/04/16 04:42 - Labs Result Diagrams: 09/03/16 05:45 09/03/16 05:45
[2016-09-04] MEDS: Enoxaparin 40 mg Syringe SC SCH (09:12)
[2016-09-04 09:37] VITALS: TEMP 98.1
--- NOTE | 2016-09-04 09:44 | CP.PCM.DIS ---
Provider - Provider Date of Admission: 09/02/16 23:26 Attending physician: Mickey Rivas MD Time Spent in preparation of Discharge (in minutes): 20 Diagnosis - Discharge Diagnosis (1) Pulmonary hypertension Status: Acute Hospital Course - Lab Results Lab Results: Micro Results 09/03/16 00:45 Urine,Clean Catch Urine Culture - Final Gram Positive Cocci 09/02/16 23:44 Blood-Venous Blood Culture - Preliminary NO GROWTH AFTER 24 HOURS Most Recent Lab Values WBC 12.5 K/uL (4.8-10.8) H 09/03/16 05:45 RBC 4.20 Mil/uL (3.80-5.20) 09/03/16 05:45 Hgb 9.0 g/dL (12.0-16.0) L 09/03/16 05:45 Hct 29.1 % (34.0-47.0) L 09/03/16 05:45 MCV 69.3 fl (81.0-99.0) L 09/03/16 05:45 MCH 21.5 pg (27.0-31.0) L 09/03/16 05:45 MCHC 31.0 g/dL (33.0-37.0) L 09/03/16 05:45 RDW 18.0 % (11.5-14.5) H 09/03/16 05:45 Plt Count 321 K/uL (130-400) 09/03/16 05:45 MPV 7.9 fl (7.2-11.7) 09/03/16 05:45 Neut % (Auto) 75.5 % (50.0-75.0) H 09/03/16 05:45 Lymph % (Auto) 12.3 % (20.0-40.0) L 09/03/16 05:45 Hartley % (Auto) 7.6 % (0.0-10.0) 09/03/16 05:45 Eos % (Auto) 4.0 % (0.0-4.0) 09/03/16 05:45 Baso % (Auto) 0.6 % (0.0-2.0) 09/03/16 05:45 Neut # 9.5 K/uL (1.8-7.0) H 09/03/16 05:45 Lymph # 1.5 K/uL (1.0-4.3) 09/03/16 05:45 Hartley # 1.0 K/uL (0.0-0.8) H 09/03/16 05:45 Eos # 0.5 K/uL (0.0-0.7) 09/03/16 05:45 Baso # 0.1 K/uL (0.0-0.2) 09/03/16 05:45 D-Dimer, Quantitative 0.62 mg/L FEU (0-0.50) H 09/02/16 21:05 Sodium 140 mmol/l (132-148) 09/03/16 05:45 Potassium 3.1 MMOL/L (3.6-5.0) L 09/03/16 05:45 Chloride 102 mmol/L (98-107) 09/03/16 05:45 Carbon Dioxide 26 mmol/L (22-30) 09/03/16 05:45 Anion Gap 15 (10-20) 09/03/16 05:45 BUN 12 mg/dl (7-17) 09/03/16 05:45 Creatinine 0.8 mg/dL (0.7-1.2) 09/03/16 05:45 Est GFR ( Amer) > 60 09/03/16 05:45 Est GFR (Non-Af Amer) > 60 09/03/16 05:45 Random Glucose 89 mg/dL (65-105) 09/03/16 05:45 Lactic Acid 0.9 MMOL/L (0.7-2.1) 09/02/16 21:05 Calcium 8.7 mg/dL (8.4-10.2) 09/03/16 05:45 Phosphorus 3.4 mg/dl (2.5-4.5) 09/02/16 21:05 Magnesium 2.1 MG/DL (1.6-2.3) 09/02/16 21:05 Total Bilirubin 1.1 mg/dl (0.2-1.3) 09/02/16 21:05 AST 32 U/L (14-36) 09/02/16 21:05 ALT 35 U/L (9-52) 09/02/16 21:05 Alkaline Phosphatase 111 U/L (38-126) 09/02/16 21:05 Troponin I < 0.0120 ng/mL (0.00-0.120) 09/02/16 21:05 NT-Pro-B Natriuret Pep 542 pg/ml (0-450) H 09/02/16 21:05 Total Protein 8.2 G/DL (6.3-8.2) 09/02/16 21:05 Albumin 4.5 g/dL (3.5-5.0) 09/02/16 21:05 Globulin 3.7 gm/dL (2.2-3.9) 09/02/16 21:05 Albumin/Globulin Ratio 1.2 (1.0-2.1) 09/02/16 21:05 TSH 3rd Generation 1.14 mIU/ML (0.46-4.68) 09/02/16 21:05 Urine Color Colorless (YELLOW) 09/03/16 00:45 Urine Clarity Clear (Clear) 09/03/16 00:45 Urine pH 6.0 (5.0-8.0) 09/03/16 00:45 Ur Specific [place] < 1.005 (1.003-1.030) 09/03/16 00:45 Urine Protein Negative mg/dL (NEGATIVE) 09/03/16 00:45 Urine Glucose (UA) Neg mg/dL (Normal) 09/03/16 00:45 Urine Ketones Negative mg/dL (NEGATIVE) 09/03/16 00:45 Urine Blood Moderate (NEGATIVE) 09/03/16 00:45 Urine Nitrate Negative (NEGATIVE) 09/03/16 00:45 Urine Bilirubin Negative (NEGATIVE) 09/03/16 00:45 Urine Urobilinogen 0.2-1.0 mg/dL (0.2-1.0) 09/03/16 00:45 Ur Leukocyte Esterase Neg Ancelmo/uL (Negative) 09/03/16 00:45 Urine RBC (Auto) 1 /hpf (0-3) 09/03/16 00:45 Urine Microscopic WBC < 1 /hpf (0-5) 09/03/16 00:45 Ur Squamous Epith Cells 1 /hpf (0-5) 09/03/16 00:45 Blood Type O POSITIVE 09/02/16 21:05 Antibody Screen Negative 09/02/16 21:05 BBK History Checked Patient has bt 09/02/16 21:05 - Hospital Course Hospital Course: This is a 36 y/o female with MHx significant for MVP and it appears for pulmonary HTN who comes in with c/o SOB and orthopnea worsening over the past 2 days. She states that the breathing symptoms have been going on for several weeks, but just suddenly got worse. She does have a dry, nonproductive cough. Denies CP. Denies LE swelling. Denies f/c/n/v/d. State she was followed by a Dr. Albert Thompson in the past for her pulm htn, and was apparently on medications , but has not seen that doctor or taken the medications in > 6 months. Patient was well diuresed, symptoms improved. HD stable, stable for discharge home. (1) Pulmonary hypertension Assessment and Plan: 36 y/o female with Pulm HTN coming in with dyspnea. Also noted to have slightly elevated WC and low grade fever. 1) Dyspnea/pulm HTN -Admit tele -Will continue to diurese; first treatment with lasix seemed to improve SOB -Echo mild LV dilatation LVEF 55% severe dilatation LA severe MR mild TR -Cardiology consult in AM -No clear sign of infection on imaging, thus will hold abx for now 2) Elevated WC - UCx+gram pos cocci, less than 10K - asymptomatic 3) DVT PPx -- SQ Lovenox Status: Acute Discharge Exam - Head Exam Head Exam: ATRAUMATIC, NORMOCEPHALIC - Eye Exam Eye Exam: EOMI, Normal appearance, PERRL Pupil Exam: NORMAL ACCOMODATION - ENT Exam ENT Exam: Mucous Membranes Moist, Normal Oropharynx - Neck Exam Neck exam: Full Rom, Normal Inspection - Respiratory Exam Respiratory Exam: Clear to PA & Lateral, NORMAL BREATHING PATTERN - Cardiovascular Exam Cardiovascular Exam: RRR, +S1. absent: Gallop, JVD, Rubs - GI/Abdominal Exam GI & Abdominal Exam: Normal Bowel Sounds, Soft. absent: Mass, Organomegaly, Tenderness - Extremities Exam Extremities exam: normal capillary refill, pedal pulses present - Back Exam Back exam: absent: CVA tenderness (L), CVA tenderness (R) - Neurological Exam Neurological exam: Alert, Oriented x3 - Psychiatric Exam Psychiatric exam: Normal Affect, Normal Mood - Skin Skin Exam: Dry, Warm Discharge Plan - Follow Up Plan Condition: GUARDED Disposition: HOME/ ROUTINE Additional Instructions: IMMEDIATE FOLLOW UP WITH PULMONARY HYPERTENSION SPECIALIST DR. ALBERT THOMPSON. RESUME HEART HEALTHY DIET ACTIVITY TOLERATED MEDS RECONCILED, COMPLIANCE EDUCATION. RETURN TO ER IF CONDITION WORSENS, FOR CHEST PAIN, SHORTNESS OF BREATH AT REST OR ON MOVEMENT. FOLLOW UP WITH PRIMARY CARE PHYSICIAN WITHIN 4-7 DAYS IF NONE, PLEASE FOLLOW UP WITH THE [facility].
--- NOTE | 2016-09-04 12:29 | CON ---
DATE: 09/04/2016 She is hospitalized under the hospitalist's care in room 401, bed 2. HISTORY OF PRESENT ILLNESS: This 36-year-old female gives history of having been hospitalized in the past with sudden shortness of breath, which was relieved by giving her diuretics in the past. Because these events had occurred around the time of her child's delivery, suspicion that she probably had pulmonary emboli was entertained. The patient has been seeing a oyster planter as an outpatient who has indicated that a leaky valve really requires surgical correction. She has seen a thoracic surgeon who had not agreed with this interpretation. She is not a smoker or hypertensive, and she has never suffered a myocardial infarction. She is not a diabetic. She has been chronically overweight. She arrived in the hospital profoundly short of breath and got prompt relief after intravenous loop diuretic was given, and she diuresed profusely. PHYSICAL EXAMINATION: GENERAL: Shows a young female, alert, awake, coherent, afebrile, sitting up in bed and eating breakfast, having diuresed with intravenous diuretics. VITAL SIGNS: Her telemetry shows sinus rhythm at 74 beats per minute, regular, and her blood pressure was 130/74 mmHg. NECK: Her jugular venous pressure was difficult to evaluate with a short thick neck. EXTREMITIES: There was no pedal edema. Extremities were warm. Nailbeds were pink. There was no central or peripheral cyanosis. There was no clubbing. Pedal pulses were well felt. THYROID AND BREASTS: Did not reveal anything abnormal. CARDIAC: There was a loud systolic murmur on the precordium, best heard at the apex, conducted to the axilla. There was no S3 gallop. LUNGS: Very few rales were audible at bases, but her inspiratory effort was poor. Her electrocardiogram showed sinus rhythm at 106 beats per minute with a pattern suggestive of left atrial enlargement, but otherwise, a normal electrocardiogram. Her echocardiogram shows a normal-sized left ventricle with preserved systolic function and normal wall motion, thickened mitral leaflets suggestive of myxomatous change with severe mitral regurgitation and mildly enlarged left atrium. LABORATORY DATA: Noted. 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 ASSESMENT and RECOMMENDATIONS: The patient has responded well to diuresis. I have changed the diuretics to oral dose and potassium supplement. I have explained the meaning of congestive heart failure in a patient with mitral valve disease, mitral regurgitation to the patient, and the fact that this is essentially a surgical disease. I have explained her options to her where a surgeon can be found who can also consider the possibility of a transcatheter approach with clipping of the mitral leaflet. I have explained that once congestive heart failure begins, the probability that surgical intervention would be less and less effective. So an early decision regarding resolving mitral regurgitation is very important. The patient can be given oral diuretics and allowed to return home to go back to her oyster planter, who has already mentioned the need for surgical intervention and has consulted a thoracic surgeon. Louie Rosales MD cc: 23 TT: 09/04/2016 12:28:52 Confirmation # [id number] Dictation # [id number] MTDD
[2016-09-04 12:41] VITALS: BP 117/78; PULSE 93; O2SAT 98
== END 2016-09-04 13:45 | disposition home or self-care (01) | DRG 315 ==
LOC: H.ER 19:47 → H.ERHOLD 23:26 → H.TEL 09-03 01:07
PROVIDERS: ADMIT Internal Medicine; ATTEND Internal Medicine
DX: I27.2 Other secondary pulmonary hypertension (principal); Z68.41 Body mass index [BMI] 40.0-44.9, adult; I50.9 Heart failure, unspecified; E66.3 Overweight; I34.1 Nonrheumatic mitral (valve) prolapse; Z91.14 Patient's other noncompliance with medication regimen; I34.0 Nonrheumatic mitral (valve) insufficiency

== ENCOUNTER 2016-12-12 12:39 | Inpatient (IN) | payer MEDICAID ==
[2016-12-12 12:39] VITALS: BMI 47.7
[2016-12-12 13:53] LABS: BASO # 0.1 K/uL (0.0-0.2); BASO % 1.2 % (0.0-2.0); EOS # 0.3 K/uL (0.0-0.7); EOS % 2.5 % (0.0-4.0); HEMATOCRIT 30.3 % (34.0-47.0); LYMPH # 3.3 K/uL (1.0-4.3); LYMPH % 28.7 % (20.0-40.0); MEAN CELL VOLUME 65.3 fl (81.0-99.0); MEAN CORPUSCULAR HEMOGLOBIN 19.9 pg (27.0-31.0); MEAN CORPUSCULAR HGB CONC 30.4 g/dL (33.0-37.0); MEAN PLATELET VOLUME 8.9 fl (7.2-11.7); MONO # 0.9 K/uL (0.0-0.8); MONO % 7.7 % (0.0-10.0); NEUT # 6.8 K/uL (1.8-7.0); NEUT % 59.9 % (50.0-75.0); NRBC % 0.2 % (0.0-0.0); RED CELL DISTRIBUTION WIDTH 21.8 % (11.5-14.5); WHITE BLOOD COUNT 11.4 K/uL (4.8-10.8)
[2016-12-12 14:02] LABS: ALB/GLOB RATIO 1.2 (1.0-2.1); ALKALINE PHOSPHATASE 78 U/L (38-126); ALT/SGPT 40 U/L (9-52); AST/SGOT 32 U/L (14-36); BILIRUBIN,TOTAL 1.2 mg/dl (0.2-1.3); BLOOD UREA NITROGEN 17 mg/dl (7-17); CALCIUM 8.8 mg/dL (8.4-10.2); CARBON DIOXIDE 22 mmol/L (22-30); CHLORIDE 107 mmol/L (98-107); GFR AFRICAN-AMERICAN > 60; GLUCOSE,RANDOM 100 mg/dL (65-105); SODIUM 139 mmol/l (132-148); TOTAL PROTEIN 6.9 G/DL (6.3-8.2)
[2016-12-12 14:05] LABS: PARTIAL THROMBOPLASTIN TIME 25.5 Seconds (25.6-37.1)
[2016-12-12 14:09] LABS: POTASSIUM 3.5 MMOL/L (3.6-5.0)
--- NOTE | 2016-12-12 14:33 | ED PDOC ---
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 Patient remembers feeling weak and dizzy, then waking up on floor. now c/o headache, body pain, nausea. abrasion on nose. Past Medical History Reviewed: Historical Data, Nursing Documentation, Vital Signs Vital Signs: Last Vital Signs Temp 98.2 F 12/12/16 12:53 Pulse 96 H 12/12/16 12:53 Resp 16 12/12/16 12:53 BP 141/90 12/12/16 12:53 Pulse Ox 99 12/12/16 12:53 - Medical History PMH: Mitral Valve Prolapse Denies: HIV, Chronic Kidney Disease - Family History Family History: States: Unknown Family Hx, Diabetes, Hypertension - Living Arrangements Living Arrangements: With Family - Social History Current smoker - smoking cessation education provided: No - Immunization History Hx Tetanus Toxoid Vaccination: No Hx Influenza Vaccination: No Hx Pneumococcal Vaccination: No - Home Medications Home Medications: Ambulatory Orders Medication Instructions Recorded Furosemide [Lasix] 20 mg PO DAILY #30 tablet 09/04/16 - Allergies Allergies/Adverse Reactions: Allergies Allergy/AdvReac Type Severity Reaction Status Date / Time No Known Allergies Allergy Verified 06/27/16 17:19 Review of Systems ROS Statement: Except As Marked, All Systems Reviewed And Found Negative Constitutional: Negative for: Fever, Chills ENT: Positive for: Nose Pain Cardiovascular: Negative for: Chest Pain, Palpitations Respiratory: Negative for: Cough, Shortness of Breath Gastrointestinal: Negative for: Nausea, Vomiting, Abdominal Pain Genitourinary Female: Negative for: Dysuria Musculoskeletal: Negative for: Neck Pain Neurological: Positive for: Headache. Negative for: Weakness, Numbness Physical Exam - Reviewed Nursing Documentation Reviewed: Yes Vital Signs Reviewed: Yes - Physical Exam Appears: Positive for: Uncomfortable (obese) Head Exam: Positive for: ATRAUMATIC, NORMAL INSPECTION, NORMOCEPHALIC Eye Exam: Positive for: Normal appearance, EOMI, PERRL. Negative for: Periorbital swelling, Periorbital tenderness, Conjunctival injection, Scleral icterus ENT: Negative for: Tonsillar Swelling Neck: Positive for: Normal, Painless ROM, Supple. Negative for: Decreased ROM, Limited ROM, Trachea Midline Cardiovascular/Chest: Positive for: Regular Rate, Rhythm. Negative for: Chest Non Tender, Edema, Gallop, Murmur, Bradycardia, Tachycardia Respiratory: Positive for: Normal Breath Sounds. Negative for: Decreased Breath Sounds, Accessory Muscle Use, Crackles, Rales, Rhonchi, Stridor, Wheezing Gastrointestinal/Abdominal: Positive for: Normal Exam, Bowel Sounds, Soft. Negative for: Tenderness Back: Positive for: Normal Inspection. Negative for: L CVA Tenderness, R CVA Tenderness Extremity: Positive for: Normal ROM. Negative for: Tenderness, Pedal Edema Neurologic/Psych: Positive for: Alert, professor of art II-XII, Oriented, Mood/Affect (calm) . Negative for: Motor/Sensory Deficits, Aphasia, Facial Droop - Laboratory Results Result Diagrams: 12/12/16 13:43 12/12/16 13:43 - ECG ECG: Positive for: Interpreted By Me ECG Rhythm: Positive for: Normal QRS, Normal ST Segment. Negative for: ST/T Changes Interpretation Of Abn EKG: rate of 92, mildly prolonged qt, no evidence of ischemia O2 Sat by Pulse Oximetry: 99 Pulse Ox Interpretation: Normal Medical Decision Making Medical Decision Making: will admit for new onset seizure, prolonged qt Dr donald agree's with plan Disposition - Clinical Impression Clinical Impression: Syncope - Patient ED Disposition Is Patient to be Admitted: Yes Counseled Patient/Family Regarding: Studies Performed, Diagnosis, Need For Followup - Disposition Disposition Time: 17:11 Condition: STABLE Forms: [employer] (Luxembourgish) - Pt Status Changed To: Hospital Disposition Of: Observation - POA Present On Arrival: None
[2016-12-12 14:48] LABS: URINE BACTERIA RARE (<OCC); URINE BILIRUBIN NEGATIVE (NEGATIVE); URINE BLOOD MODERATE (NEGATIVE); URINE COLOR YELLOW (YELLOW); URINE GLUCOSE (UA) NEG (Normal); URINE KETONE NEGATIVE (NEGATIVE); URINE LEUKOCYTE ESTERASE TRACE Leu/uL (Negative); URINE PROTEIN 30 mg/dL (NEGATIVE); URINE UROBILINOGEN 0.2-1.0 mg/dL (0.2-1.0)
[2016-12-12 14:49] LABS: RBC URINE 27 /hpf (0-3)
[2016-12-12 14:50] LABS: WBC URINE 15 /hpf (0-5)
--- NOTE | 2016-12-12 15:25 | CT ---
PROCEDURE: CT HEAD WITHOUT CONTRAST. HISTORY: junior COMPARISON: None available. TECHNIQUE: Axial computed tomography images were obtained through the head/brain without intravenous contrast. Coronal and sagittal reconstructed images. Radiation dose: Total exam DLP = 884.42 mGy-cm. This CT exam was performed using one or more of the following dose reduction techniques: Automated exposure control, adjustment of the mA and/or kV according to patient size, and/or use of iterative reconstruction technique. FINDINGS: HEMORRHAGE: No intracranial hemorrhage. BRAIN: No mass effect or edema. No atrophy or chronic microvascular ischemic changes. VENTRICLES: Unremarkable. No hydrocephalus. CALVARIUM: Unremarkable. PARANASAL SINUSES: Unremarkable as visualized. No significant inflammatory changes. MASTOID AIR CELLS: Unremarkable as visualized. No inflammatory changes. OTHER FINDINGS: None. IMPRESSION: No acute intracranial abnormalities. No significant findings to account for the clinical presentation.
--- NOTE | 2016-12-12 16:05 | RAD ---
HISTORY: cp COMPARISON: Comparison chest 09/02/2016. FINDINGS: LUNGS: Poor inspiration with low lung volumes, crowded bronchovascular markings and mild bibasilar atelectasis. PLEURA: No significant pleural effusion identified, no pneumothorax apparent. CARDIOVASCULAR: Heart appears enlarged. OSSEOUS STRUCTURES: No significant abnormalities. VISUALIZED UPPER ABDOMEN: Normal. OTHER FINDINGS: None. IMPRESSION: Poor inspiration with low lung volumes, crowded bronchovascular markings and mild bibasilar atelectasis.
[2016-12-12] MEDS ORDERED: Iodixanol 320 MG/ML 100 ML BOTTLE IV ONE (16:25)
[2016-12-12] MEDS ORDERED: Sodium Chloride 0.9% 50 ML IV ONE (16:26)
--- NOTE | 2016-12-12 17:16 | CT ---
PROCEDURE: CT Chest with contrast (Pulmonary Angiogram) HISTORY: Syncope, pulmonary embolism suspected. COMPARISON: 09/02/2016. CT pulmonary angiogram TECHNIQUE: Axial computed tomography images were obtained of the chest in the pulmonary arterial phase of enhancement. Coronal and sagittal reformatted images were created and reviewed. Maximum intensity projection (MIP) reconstructed images in the following planes: Axial project only Intravenous contrast dose: 100 cc Visipaque 320. Mean Hounsfield unit values in the main pulmonary artery: 347.16 Radiation dose: Total exam DLP = 3 a 1.65 mGy-cm. This CT exam was performed using one or more of the following dose reduction techniques: Automated exposure control, adjustment of the mA and/or kV according to patient size, and/or use of iterative reconstruction technique. FINDINGS: PULMONARY ARTERIES: Unremarkable. No pulmonary embolism. Dilated main pulmonary artery, findings suggest pulmonary arterial hypertension. Mean diameter 3.8 cm. AORTA: No acute findings. No thoracic aortic aneurysm. LUNGS: Unremarkable. No nodule, mass or pulmonary consolidation. PLEURAL SPACES: Unremarkable. No effusion or pneuomothorax. HEART: Cardiomegaly. No evidence of acute, significant cardiovascular disease. LYMPH NODES: No lymphadenopathy. BONES, CHEST WALL: Unremarkable. No fracture or destructive lesion OTHER FINDINGS: Unremarkable. IMPRESSION: Unremarkable CT pulmonary angiogram. No pulmonary embolus. No significant interval change compared to the prior examination(s). Additional benign and/or incidental findings described above.
[2016-12-12 20:45] LABS: THYROID STIMULATING HORMONE 1.28 mIU/ML (0.46-4.68)
[2016-12-13 06:29] LABS: HEMATOCRIT 31.1 % (34.0-47.0); MEAN CELL VOLUME 66.1 fl (81.0-99.0); MEAN CORPUSCULAR HEMOGLOBIN 20.1 pg (27.0-31.0); MEAN CORPUSCULAR HGB CONC 30.4 g/dL (33.0-37.0); RED CELL DISTRIBUTION WIDTH 21.7 % (11.5-14.5); WHITE BLOOD COUNT 9.4 K/uL (4.8-10.8)
[2016-12-13 06:32] LABS: ALB/GLOB RATIO 1.2 (1.0-2.1); ALKALINE PHOSPHATASE 85 U/L (38-126); ALT/SGPT 43 U/L (9-52); AST/SGOT 32 U/L (14-36); BILIRUBIN,TOTAL 1.4 mg/dl (0.2-1.3); BLOOD UREA NITROGEN 15 mg/dl (7-17); CALCIUM 8.5 mg/dL (8.4-10.2); CARBON DIOXIDE 23 mmol/L (22-30); CHLORIDE 107 mmol/L (98-107); CHOLESTEROL 110 mg/dL (0-199); GFR AFRICAN-AMERICAN > 60; GLUCOSE,RANDOM 83 mg/dL (65-105); SODIUM 139 mmol/l (132-148); TOTAL PROTEIN 6.7 G/DL (6.3-8.2)
[2016-12-13 06:39] LABS: T4 14.5 ug/dl (5.5-11.0)
[2016-12-13 06:52] LABS: THYROID STIMULATING HORMONE 1.26 mIU/ML (0.46-4.68)
--- NOTE | 2016-12-13 10:45 | CARD ---
APPROVED REPORT EKG Measurement Heart [id number] <Conclusion> Normal sinus rhythm Possible Left atrial enlargement Prolonged QT Abnormal ECG
[2016-12-13] MEDS: Enoxaparin 40 mg Syringe SC SCH (11:36)
[2016-12-13] MEDS ORDERED: Docusate Sodium/Ferrous Fumara 1 TAB PO SCH (13:00)
--- NOTE | 2016-12-13 13:06 | CP.PCM.HP ---
<Gamal Johnson - Last Filed: 12/13/16 12:59> History of Present Illness - History of Present Illness History of Present Illness: 36 y/o with a PMHx of anemia, pulmonary hypertension and mitral valve prolapse presented to [facility] ED after a seizure. Pt reports she was feeling dizzy and lightheaded yesterday morning, when she went to go to sit down, she " blacked out" and woke up on the floor a few minutes later. The episode was associated with both bladder/bowel incontinence and confusion/blurry vision for about 5-10 minutes after. Pt reports she woke up face down on the floor with an abrasion on her nose. She denies any other symptoms or inciting event. Reports an episode of syncope in 2005 at work and reports nothing came out of that work up. Currently reports feeling well overall w/o any pain or complaints. ROS: remaining systems reviewed, found to be negative PMD: Dr. Atul Brown PMHx: as per HPI Meds: Lasix 20mg QD ALL: NKDA PSurgHx: none FamilyHx: father alive, HTN, DM2, Mother alive healthly, siblings alive and healthy SocialHx: denies ETOH, Tobacco, Drug abuse, lives at home with and children OBGYN: , 2 SABs, most recent being this year, currently menstruating, regular cycles, 4-5 pads per day ED COURSE: Vitals on Presentation: T 98.2, BP 141/90, HR 96, RR 16, POX 99% RA CBC: 11.4>9.2/30.4<314, MCV: 65 CHEM: WNL, Prolactin: 23 T4: 14.5 PT/INR: 13.8/1.3 D-DIMER: 1024 CRP: 14.17 EKG: NSR, Possible Left atrial enlargement, prolonged QT (as per official report ) CT-Angio: negative for PE Head CT: no significant findings to correlate with clinical setting Admitted to tele Present on Admission - Present on Admission Any Indicators Present on Admission: No Past Patient History - Infectious Disease Hx of Infectious Diseases: None - Past Medical History & Family History Past Medical History?: Yes - Past Social History Smoking Status: Never Smoked - CARDIAC Hx Mitral Valve Prolapse: Yes - PULMONARY Hx Respiratory Disorders: No - NEUROLOGICAL Hx Neurological Disorder: No - HEENT Hx HEENT Problems: No - RENAL Hx Chronic Kidney Disease: No - ENDOCRINE/METABOLIC Hx Endocrine Disorders: No - HEMATOLOGICAL/ONCOLOGICAL Hx Blood Disorders: No Hx AIDS: No Hx Human Immunodeficiency Virus (HIV): No - INTEGUMENTARY Hx Dermatological Problems: No - MUSCULOSKELETAL/RHEUMATOLOGICAL Hx Musculoskeletal Disorders: No Hx Falls: No - GASTROINTESTINAL Hx Gastrointestinal Disorders: No - GENITOURINARY/GYNECOLOGICAL Hx Genitourinary Disorders: No - PSYCHIATRIC Hx Psychophysiologic Disorder: No Hx Substance Use: No - SURGICAL HISTORY Hx Surgeries: No - ANESTHESIA Hx Anesthesia: Yes Hx Anesthesia Reactions: No Hx Malignant Hyperthermia: No Has any member of the family had a problem w/ anesthesia?: No Meds Allergies/Adverse Reactions: Allergies Allergy/AdvReac Type Severity Reaction Status Date / Time No Known Allergies Allergy Verified 06/27/16 17:19 Physical Exam - Constitutional Appears: Non-toxic, No Acute Distress - Head Exam Head Exam: ATRAUMATIC - Eye Exam Eye Exam: EOMI. absent: Conjunctival injection, Scleral icterus Pupil Exam: PERRL - ENT Exam ENT Exam: Mucous Membranes Moist Additional comments: superficial abrasion overlying nose - Neck Exam Neck exam: Positive for: Full Rom. Negative for: Lymphadenopathy, Tenderness - Respiratory Exam Respiratory Exam: Clear to Auscultation Bilateral, NORMAL BREATHING PATTERN. absent: Chest Wall Tenderness, Rales, Rhonchi, Wheezes - Cardiovascular Exam Cardiovascular Exam: REGULAR RHYTHM, RRR, +S1, +S2. absent: Gallop, JVD, Rubs, Systolic Murmur - GI/Abdominal Exam GI & Abdominal Exam: Normal Bowel Sounds, Soft. absent: Distended, Firm, Guarding, Tenderness - Extremities Exam Extremities exam: Positive for: normal inspection. Negative for: calf tenderness - Back Exam Back exam: absent: paraspinal tenderness, tenderness, vertebral tenderness - Neurological Exam Neurological exam: Alert, CN II-XII Intact, Normal Gait, Oriented x3, Reflexes Normal - Psychiatric Exam Psychiatric exam: Normal Affect, Normal Mood - Skin Skin Exam: Dry, Intact, Normal Color Results - Vital Signs Recent Vital Signs: Last Vital Signs Temp 97.9 F 12/13/16 12:08 Pulse 89 12/13/16 12:08 Resp 18 12/13/16 12:08 BP 104/71 12/13/16 12:08 Pulse Ox 98 12/13/16 12:08 - Labs Result Diagrams: 12/13/16 05:00 12/13/16 05:00 Labs: Laboratory Results - last 24 hr 12/12/16 12/12/16 12/12/16 13:18 13:43 13:43 WBC 11.4 H RBC 4.64 Hgb 9.2 L Hct 30.3 L MCV 65.3 L D MCH 19.9 L MCHC 30.4 L RDW 21.8 H Plt Count 314 MPV 8.9 Neut % (Auto) 59.9 Lymph % (Auto) 28.7 [place] % (Auto) 7.7 Eos % (Auto) 2.5 Baso % (Auto) 1.2 Neut # 6.8 Lymph # 3.3 [place] # 0.9 H Eos # 0.3 Baso # 0.1 ESR PT INR APTT D-Dimer, Quantitative Sodium 139 Potassium 3.5 L Chloride 107 Carbon Dioxide 22 Anion Gap 14 BUN 17 Creatinine 0.9 Est GFR ( Amer) > 60 Est GFR (Non-Af Amer) > 60 POC Glucose (mg/dL) 113 H Random Glucose 100 Calcium 8.8 Magnesium Total Bilirubin 1.2 AST 32 ALT 40 Alkaline Phosphatase 78 Troponin I < 0.0120 C-React Prot High Sens Total Protein 6.9 Albumin 3.8 Globulin 3.1 Albumin/Globulin Ratio 1.2 Triglycerides Cholesterol LDL Cholesterol Direct HDL Cholesterol Vitamin B12 Thyroxine (T4) TSH 3rd Generation Prolactin Urine Color Urine Clarity Urine pH Ur Specific [place] Urine Protein Urine Glucose (UA) Urine Ketones Urine Blood Urine Nitrate Urine Bilirubin Urine Urobilinogen Ur Leukocyte Esterase Urine RBC (Auto) Urine Microscopic WBC Ur Squamous Epith Cells Urine Bacteria Urine Opiates Screen Urine Methadone Screen Ur Barbiturates Screen Ur Phencyclidine Scrn Ur Amphetamines Screen U Benzodiazepines Scrn U Oth Cocaine Metabols U Cannabinoids Screen 12/12/16 12/12/16 12/12/16 13:43 13:43 14:34 WBC RBC Hgb Hct MCV MCH MCHC RDW Plt Count MPV Neut % (Auto) Lymph % (Auto) [place] % (Auto) Eos % (Auto) Baso % (Auto) Neut # Lymph # [place] # Eos # Baso # ESR PT 13.8 H INR 1.3 H APTT 25.5 L D-Dimer, Quantitative 1024 H Sodium Potassium Chloride Carbon Dioxide Anion Gap BUN Creatinine Est GFR ( Amer) Est GFR (Non-Af Amer) POC Glucose (mg/dL) Random Glucose Calcium Magnesium 2.2 Total Bilirubin AST ALT Alkaline Phosphatase Troponin I C-React Prot High Sens Total Protein Albumin Globulin Albumin/Globulin Ratio Triglycerides Cholesterol LDL Cholesterol Direct HDL Cholesterol Vitamin B12 Thyroxine (T4) TSH 3rd Generation Prolactin Urine Color Yellow Urine Clarity Slighty-cloudy Urine pH 6.0 Ur Specific [place] 1.021 Urine Protein 30 Urine Glucose (UA) Neg Urine Ketones Negative Urine Blood Moderate Urine Nitrate Negative Urine Bilirubin Negative Urine Urobilinogen 0.2-1.0 Ur Leukocyte Esterase Trace Urine RBC (Auto) 27 H Urine Microscopic WBC 15 H Ur Squamous Epith Cells 5 Urine Bacteria Rare Urine Opiates Screen Urine Methadone Screen Ur Barbiturates Screen Ur Phencyclidine Scrn Ur Amphetamines Screen U Benzodiazepines Scrn U Oth Cocaine Metabols U Cannabinoids Screen 12/12/16 12/12/16 12/12/16 14:34 19:57 19:57 WBC RBC Hgb Hct MCV MCH MCHC RDW Plt Count MPV Neut % (Auto) Lymph % (Auto) [place] % (Auto) Eos % (Auto) Baso % (Auto) Neut # Lymph # [place] # Eos # Baso # ESR PT INR APTT D-Dimer, Quantitative Sodium Potassium Chloride Carbon Dioxide Anion Gap BUN Creatinine Est GFR ( Amer) Est GFR (Non-Af Amer) POC Glucose (mg/dL) Random Glucose Calcium Magnesium Total Bilirubin AST ALT Alkaline Phosphatase Troponin I C-React Prot High Sens 14.17 H Total Protein Albumin Globulin Albumin/Globulin Ratio Triglycerides Cholesterol LDL Cholesterol Direct HDL Cholesterol Vitamin B12 Thyroxine (T4) TSH 3rd Generation 1.28 Prolactin 23.0 H Urine Color Urine Clarity Urine pH Ur Specific [place] Urine Protein Urine Glucose (UA) Urine Ketones Urine Blood Urine Nitrate Urine Bilirubin Urine Urobilinogen Ur Leukocyte Esterase Urine RBC (Auto) Urine Microscopic WBC Ur Squamous Epith Cells Urine Bacteria Urine Opiates Screen Negative Urine Methadone Screen Negative Ur Barbiturates Screen Negative Ur Phencyclidine Scrn Negative Ur Amphetamines Screen Negative U Benzodiazepines Scrn Negative U Oth Cocaine Metabols Negative U Cannabinoids Screen Negative 12/12/16 12/13/16 12/13/16 20:55 05:00 05:00 WBC 9.4 RBC 4.71 Hgb 9.4 L Hct 31.1 L MCV 66.1 L MCH 20.1 L MCHC 30.4 L RDW 21.7 H Plt Count 305 MPV Neut % (Auto) Lymph % (Auto) [place] % (Auto) Eos % (Auto) Baso % (Auto) Neut # Lymph # [place] # Eos # Baso # ESR 15 PT INR APTT D-Dimer, Quantitative Sodium 139 Potassium 4.0 Chloride 107 Carbon Dioxide 23 Anion Gap 13 BUN 15 Creatinine 0.9 Est GFR ( Amer) > 60 Est GFR (Non-Af Amer) > 60 POC Glucose (mg/dL) Random Glucose 83 Calcium 8.5 Magnesium Total Bilirubin 1.4 H AST 32 ALT 43 Alkaline Phosphatase 85 Troponin I C-React Prot High Sens Total Protein 6.7 Albumin 3.6 Globulin 3.0 Albumin/Globulin Ratio 1.2 Triglycerides 74 Cholesterol 110 LDL Cholesterol Direct 75 HDL Cholesterol 22 L Vitamin B12 860 Thyroxine (T4) 14.5 H TSH 3rd Generation 1.26 Prolactin Urine Color Urine Clarity Urine pH Ur Specific [place] Urine Protein Urine Glucose (UA) Urine Ketones Urine Blood Urine Nitrate Urine Bilirubin Urine Urobilinogen Ur Leukocyte Esterase Urine RBC (Auto) Urine Microscopic WBC Ur Squamous Epith Cells Urine Bacteria Urine Opiates Screen Urine Methadone Screen Ur Barbiturates Screen Ur Phencyclidine Scrn Ur Amphetamines Screen U Benzodiazepines Scrn U Oth Cocaine Metabols U Cannabinoids Screen Assessment & Plan (1) Seizure-like activity Assessment and Plan: asymptomatic since admission Prolactin elevated at 23 neurology consult appreciated, will follow up recommendations Status: Acute (2) Anemia Assessment and Plan: uncertain etilogy but current labs point in the direction of iron def. pt does not currently take any supplements, will require Fe supplement Status: Chronic (3) Pulmonary hypertension Assessment and Plan: c/w home meds Status: Chronic (4) DVT prophylaxis Assessment and Plan: Lovenox 40mg SC QD Status: Acute <Michael De La Torre K - Last Filed: 12/21/16 16:15> Results - Vital Signs Recent Vital Signs: Last Vital Signs Temp 97.9 F 12/17/16 12:00 Pulse 83 12/17/16 12:00 Resp 18 12/17/16 12:00 BP 116/82 12/17/16 12:00 Pulse Ox 98 12/17/16 12:00 - Labs Result Diagrams: 12/17/16 04:15 12/17/16 04:15 Labs: Laboratory Results - last 24 hr 12/14/16 13:15 Rheumatoid Factor TNP MIRTA Screen TNP MIRTA Titer TNP MIRTA Pattern TNP SS-A Antibody TNP SS-B Antibody TNP Sm (Arce) Antibody TNP SM/FORECLOSURE CLERK Antibody TNP Scl-70 Antibody TNP Anti-ds DNA Titer (Crith) TNP Anti-ds DNA (Crithidia) TNP Ribosomal P Prot Ab TNP Anti-Mitochondrial Titr TNP Anti-Mitochondrial Ab TNP Actin IgG Antibody TNP Striated Muscle Ab TNP Myocardial Ab Titer TNP Anti-Myocardial Ab TNP Reticulin Ab Titer TNP Reticulin IgA Antibody TNP Thyroperoxidase Ab TNP Anti-Parietal Cell Ab TNP Complement C3 TNP Complement C4 TNP Assessment & Plan - Assessment and Plan (Free Text) Assessment: Patient was personally seen and examined by me in rounds with residents. Available labs and diagnostic data reviewed. Case, Patient's condition and management plan Discussed with residents in rounds. Agree with resident's progress note. Plan: As ordered.
--- NOTE | 2016-12-13 14:41 | US ---
PROCEDURE: Duplex ultrasound of the carotid and vertebral arteries. HISTORY: ASSESS STENOSIS COMPARISON: None available. TECHNIQUE: Grayscale and duplex Doppler evaluation of the cervical carotid and vertebral arteries were performed. The common carotid, carotid bifurcations and cervical ICA and proximal ECA were evaluated. The vertebral arteries were evaluated for gross patency and direction. FINDINGS: There is mild bilateral intimal thickening in the carotid arteries. RIGHT CAROTID ARTERIES: Common Carotid Artery: Normal. Maximal flow velocity of 55.9 cm/s. Carotid Bifurcation: Normal. Internal Carotid Artery:Normal. Maximal flow velocity of 75.8 cm/s. External Carotid Artery (proximal branches): Normal. Maximal flow velocity of 45.1 cm/s. ICA/CCA Ratio: 1.4 LEFT CAROTID ARTERIES: Common Carotid Artery: Normal. Maximal flow velocity of 61.6 cm/s. Carotid Bifurcation: Normal. Internal Carotid Artery:Normal. Maximal flow velocity of 75.4 cm/s. External Carotid Artery (proximal branches): Normal. Maximal flow velocity of 40.5 cm/s. ICA/CCA Ratio: 1.2 VERTEBRAL ARTERIES: Right Vertebral Artery: Patent. Antegrade flow. Left Vertebral Artery: Patent. Antegrade flow. OTHER FINDINGS: None. IMPRESSION: No hemodynamically significant stenosis.
[2016-12-13] MEDS ORDERED: Gadodiamide 287 MG/ML VIAL (15ML) IV ONE (16:22)
--- NOTE | 2016-12-13 18:16 | MRI ---
PROCEDURE: MRI BRAIN WITH AND WITHOUT CONTRAST HISTORY: SEIZURE ATTENTION AT MESIAL TEMP LOBE COMPARISON: Noncontrast CT from 12/12/2016. TECHNIQUE: Multiplanar, multisequence MR images of the brain were obtained with and without intravenous contrast enhancement. 24 cc Omniscan was injected intravenously. FINDINGS: HEMORRHAGE: None DWI: No evidence of an acute or early subacute infarction. BRAIN PARENCHYMA: Pringle-white matter differentiation is preserved. There are few scattered T2/FLAIR hyperintense foci in the subcortical supratentorial white matter. There is no mass, mass effect or abnormal extra-axial fluid collection. There is no territorial infarction. The midline sagittal structures are normal. There is no evidence of cortical dysplasia, neuronal migrational anomaly or mesial temporal sclerosis. ENHANCEMENT: No abnormal intracranial enhancement. VENTRICLES: The ventricles are normal in size, shape and configuration. CRANIUM: There is normal bone marrow signal pattern. ORBITS: Grossly unremarkable. PARANASAL SINUSES/MASTOIDS: There is mild mucosal thickening in the paranasal sinuses. The mastoid air cells are clear. VASCULAR SYSTEM: There are normal signal voids in the larger intracranial arteries. OTHER FINDINGS: None . IMPRESSION: 1. No acute intracranial abnormality. Specifically, no evidence of acute infarction, intracranial mass or mesial temporal sclerosis. 2. Minimal supratentorial white matter changes are strictly nonspecific. The differential considerations include migraine headache effect, gliosis, vasculitis, Lyme disease and demyelinating disease including multiple sclerosis. Clinical correlation and follow-up is advised.
--- NOTE | 2016-12-13 18:24 | CP.PCM.CON ---
History of Present Illness - History of Present Illness History of Present Illness: CONSULT DICTATED SYNCOPE WITH SPHINCTER INCONTINENCE ?? SEIZURE EEG AND MRI NORMAL NO AED IS NOW SHE ALSO POSSIBLY SUFFERING FROM PSUEDOTUMOR CEREBRI Rx DIAMOX FOR NOW HEMEATOLOGY CONSULT FOR HER ABN WORK UP Past Patient History - Infectious Disease Hx of Infectious Diseases: None - Past Medical History & Family History Past Medical History?: Yes - Past Social History Smoking Status: Never Smoked - CARDIAC Hx Mitral Valve Prolapse: Yes - PULMONARY Hx Respiratory Disorders: No - NEUROLOGICAL Hx Neurological Disorder: No - HEENT Hx HEENT Problems: No - RENAL Hx Chronic Kidney Disease: No - ENDOCRINE/METABOLIC Hx Endocrine Disorders: No - HEMATOLOGICAL/ONCOLOGICAL Hx Blood Disorders: No Hx AIDS: No Hx Human Immunodeficiency Virus (HIV): No - INTEGUMENTARY Hx Dermatological Problems: No - MUSCULOSKELETAL/RHEUMATOLOGICAL Hx Musculoskeletal Disorders: No Hx Falls: No - GASTROINTESTINAL Hx Gastrointestinal Disorders: No - GENITOURINARY/GYNECOLOGICAL Hx Genitourinary Disorders: No - PSYCHIATRIC Hx Psychophysiologic Disorder: No Hx Substance Use: No - SURGICAL HISTORY Hx Surgeries: No - ANESTHESIA Hx Anesthesia: Yes Hx Anesthesia Reactions: No Hx Malignant Hyperthermia: No Has any member of the family had a problem w/ anesthesia?: No Meds Allergies/Adverse Reactions: Allergies Allergy/AdvReac Type Severity Reaction Status Date / Time No Known Allergies Allergy Verified 06/27/16 17:19 - Medications Medications: Current Medications Acetazolamide (Diamox Sequels 500 Mg Sr Cap) 500 mg PO DAILY MEG Docusate Sodium (Colace) 100 mg PO DAILY MEG Enoxaparin Sodium (Lovenox) 40 mg SC DAILY [facility] PRN Reason: Protocol Last Admin: 12/13/16 11:36 Dose: 40 mg Ferrous Sulfate (Feosol) 325 mg PO DAILY MEG Furosemide (Lasix) 20 mg PO DAILY MEG Last Admin: 12/13/16 11:34 Dose: 20 mg Results - Vital Signs Recent Vital Signs: Last Vital Signs Temp 98.1 F 12/13/16 16:24 Pulse 91 H 12/13/16 16:24 Resp 14 12/13/16 16:24 BP 131/90 12/13/16 16:24 Pulse Ox 100 12/13/16 16:24 - Labs Result Diagrams: 12/13/16 05:00 12/13/16 05:00 Labs: Laboratory Results - last 24 hr 12/12/16 12/12/1612/12/17 13:18 13:43 19:57 WBC RBC Hgb Hct MCV MCH MCHC RDW Plt Count ESR Sodium Potassium Chloride Carbon Dioxide Anion Gap BUN Creatinine Est GFR ( Amer) Est GFR (Non-Af Amer) POC Glucose (mg/dL) 113 H Random Glucose Calcium Magnesium 2.2 Total Bilirubin AST ALT Alkaline Phosphatase C-React Prot High Sens 14.17 H Total Protein Albumin Globulin Albumin/Globulin Ratio Triglycerides Cholesterol LDL Cholesterol Direct HDL Cholesterol Vitamin B12 Thyroxine (T4) TSH 3rd Generation Prolactin RPR 12/12/16 12/12/16 12/12/16 19:57 19:57 20:55 WBC RBC Hgb Hct MCV MCH MCHC RDW Plt Count ESR 15 Sodium Potassium Chloride Carbon Dioxide Anion Gap BUN Creatinine Est GFR ( Amer) Est GFR (Non-Af Amer) POC Glucose (mg/dL) Random Glucose Calcium Magnesium Total Bilirubin AST ALT Alkaline Phosphatase C-React Prot High Sens Total Protein Albumin Globulin Albumin/Globulin Ratio Triglycerides Cholesterol LDL Cholesterol Direct HDL Cholesterol Vitamin B12 Thyroxine (T4) TSH 3rd Generation 1.28 Prolactin 23.0 H RPR Nonreactive 12/13/16 12/13/16 05:00 05:00 WBC 9.4 RBC 4.71 Hgb 9.4 L Hct 31.1 L MCV 66.1 L MCH 20.1 L MCHC 30.4 L RDW 21.7 H Plt Count 305 ESR Sodium 139 Potassium 4.0 Chloride 107 Carbon Dioxide 23 Anion Gap 13 BUN 15 Creatinine 0.9 Est GFR ( Amer) > 60 Est GFR (Non-Af Amer) > 60 POC Glucose (mg/dL) Random Glucose 83 Calcium 8.5 Magnesium Total Bilirubin 1.4 H AST 32 ALT 43 Alkaline Phosphatase 85 C-React Prot High Sens Total Protein 6.7 Albumin 3.6 Globulin 3.0 Albumin/Globulin Ratio 1.2 Triglycerides 74 Cholesterol 110 LDL Cholesterol Direct 75 HDL Cholesterol 22 L Vitamin B12 860 Thyroxine (T4) 14.5 H TSH 3rd Generation 1.26 Prolactin RPR
--- NOTE | 2016-12-13 21:15 | CP.PCM.CON ---
History of Present Illness - History of Present Illness History of Present Illness: PT WITH SECOND SYNCOPAL EPISODE IN 1 YEAR. BOTH INVOLVED INCONTINENCE. UNKNOWN IF SZ ACTIVITY. 1ST EPISODE WAS AT WORK, ROOM WAS HOT, SHE STOOD UP FROM SEATED POSITION AND SYNCOPIZED. PT HAD NO PRE-SYNCOPAL SX. THIS EPISODE WAS WHILE YELLING AT HER CHILD. SHE WAS STANDING FELT LIGHTHEADED , REACHED FOR CHAIR AND PASSED OUT. PT DENIES PALP, ALCANTAR, ORTHOPNEA, PND, JONI. SHE STATES SHE IS ON LASIX FOR PHTN B/C OF MVP. SHE WAS ADVISED TO HAVE MV SURGERY BY OUTSIDE FREIGHT COORDINATOR. HOWEVER SHE HAS NOT HAD A CARDIAC CATH NOR A ST. PT DENIES HTN, CAD, MD. DENIES TOBACCO USE. SHE ADMITS TO CONFUSION AFTER SYNCOPAL EPISODE. Review of Systems - Constitutional Constitutional: As Per HPI. absent: Anorexia, Chills, Daytime Sleepiness, Excessive Sweating, Fatigue, Fever, Frequent Falls, Headache, Increased Appetite , Lethargy, Malaise, Night Sweats, Snoring, Sleep Apnea, Weight Gain, Weight Loss, Weakness, Other - EENT Eyes: As Per HPI. absent: Blind Spots, Blurred Vision, Change in Vision, Decreased Night Vision, Diplopia, Discharge, Dry Eye, Exophthalmos, Floaters, Irritation, Itchy Eyes, Loss of Peripheral Vision, Pain, Photophobia, Requires Corrective Lenses, Sees Flashes, Spots in Vision, Tunnel Vision, Other Visual Disturbances, Loss of Vision, Other Ears: As Per HPI. absent: Decreased Hearing, Ear Discharge, Ear Pain, Tinnitus , Abnormal Hearing, Disequilibrium, Dizziness, Other Nose/Mouth/Throat: As Per HPI. absent: Epistaxis, Nasal Congestion, Nasal Discharge, Nasal Obstruction, Nasal Trauma, Nose Pain, Post Nasal Drip, Sinus Pain, Sinus Pressure, Bleeding Gums, Change in Voice, Dental Pain, Dry Mouth, Dysphagia, Halitosis, Hoarsness, Lip Swelling, Mouth Lesions, Mouth Pain, Odynophagia, Sore Throat, Throat Swelling, Tongue Swelling, Facial Pain, Neck Pain, Neck Mass, Other - Breasts Breasts: As Per HPI. absent: Change in Shape, Mass, Pain, Nipple Discharge, Nipple Inversion, Skin Changes, Swelling, Other - Cardiovascular Cardiovascular: As Per HPI, Lightheadedness, Syncope. absent: Acrocyanosis, Chest Pain, Chest Pain at Rest, Chest Pain with Activity, Claudication, Diaphoresis, Dyspnea, Dyspnea on Exertion, Edema, Irregular Heart Rhythm, Pain Radiating to Arm/Neck/Jaw, Leg Edema, Leg Ulcers, Orthopnea, Palpitations, Paroxysmal Nocturnal Dyspnea, Pedal Edema, Radiating Pain, Rapid Heart Rate, Slow Heart Rate, Other - Respiratory Respiratory: As Per HPI. absent: Cough, Dyspnea, Hemoptysis, Dyspnea on Exertion, Wheezing, Snoring, Stridor, Pain on Inspiration, Chest Congestion, Excessive Mucous Production, Change in Mucous Color, Pain with Coughing, Other - Gastrointestinal Gastrointestinal: As Per HPI. absent: Abdominal Pain, Belching, Bloating, Change in Bowel Habits, Change in Stool Character, Coffee Ground Emesis, Constipation, Cramping, Diarrhea, Dyspepsia, Dysphagia, Early Satiety, Excessive Flatus, Fecal Incontinence, Heartburn, Hematemesis, Hematochezia, Loose Stools, Melena, Nausea, Odynophagia, Temesmus, Vomiting, Other - Genitourinary Genitourinary: As Per HPI. absent: Change in Urinary Stream, Difficulty Urinating, Dysuria, Flank Pain, Hematuria, Pyuria, Nocturia, Urinary Incontinence, Urinary Frequency, Urinary Hesitance, Urinary Urgency, Voiding Freq/Small Amts, Freq UTI, Hx Renal/Bladder Calculi, Hx /Renal Surgery, Bladder Distension, Other - Reproductive: Female Reproductive:Female: As Per HPI. absent: Amenorrhea, Amenorrhea/ Control, Currently Menstual, Cycle <21 Days, Cycle >35 Days, Cycle Variable, Menses 1-7 Days, Menses >/= 8 Days, Menses Variable, Cycle > 4 Weeks Between, No Menses for 6 Months, Heavy Menses, Light Menses, Normal Menses, Spotting Between Cycles , S/P Hysterectomy, Menopausal, Post Menopausal, Premenarche, Abnormal Vaginal Bleeding, Dysmenorrhea, Dyspareunia, Genital Lesions, Genital Pruritis, Pelvic Pain, Prolapse Symptoms, Sexual Dysfunction, Vaginal Discharge, Vaginal Dryness , Vaginal Odor, Vaginal Pruritis, Other - Menstruation Menstruation: As Per HPI. absent: Amenorrhea, Amenorrhea/ Control, Currently Menstual, Cycle <21 Days, Cycle >35 Days, Cycle Variable, Menses 1-7 Days, Menses >/= 8 Days, Menses Variable, Cycle > 4 Weeks Between, No Menses for 6 Months, Heavy Menses, Light Menses, Normal Menses, Spotting Between Cycles , S/P Hysterectomy, Menopausal, Post Menopausal, Premenarche, Abnormal Vaginal Bleeding, Dysmenorrhea, Other - Musculoskeletal Musculoskeletal: As Per HPI. absent: Abnormal Gait, Arthralgias, Atrophy, Back Pain, Deformity, Joint Swelling, Limited Range of Motion, Loss of Height, Muscle Cramps, Muscle Weakness, Myalgias, Neck Pain, Numbness, Radiating Pain into Limb, Stiffness, Tingling, Other - Integumentary Integumentary: As Per HPI. absent: Acne, Alopecia, Bleeding Lesions, Change in Hair, Change in Nails, Change in Pigmentation, Changing Lesions, Dry Skin, Erythema, Furuncle, Hirsutism, Lesions, New Lesions, Non-Healing Lesions, Photosensitivity, Pruritus, Rash, Skin Pain, Skin Ulcer, Sores, Striae, Swelling , Unusual Bruising, Wounds, Jaundice, Other - Neurological Neurological: As Per HPI, Dizziness, Syncope. absent: Abnormal Gait, Abnormal Hearing, Abnormal Movements, Abnormal Speech, Behavioral Changes, Burning Sensations, Confusion, Convulsions, Disequilibrium, Numbness, Focal Weakness, Frequent Falls, Headaches, Lack of Coordination, Loss of Vision, Memory Loss, Paresthesias, Radicular Pain, Restless Legs, Sensory Deficit, Tingling, Tremor, Vertigo, Weakness, Other Visual Disturbances, Other - Psychiatric Psychiatric: As Per HPI. absent: Abnormal Sleep Pattern, Anhedonia, Anxiety, Auditory Hallucinations, Behavioral Changes, Change in Appetite, Change in Libido, Confusion, Depression, Difficulty Concentrating, Hallucinations, Homicidal Ideation, Hopelessness, Irritability, Memory Loss, Mood Swings, Panic Attacks, Paranoia, Suicidal Ideation, Visual Hallucinations, Tactile Hallucinations, Other - Endocrine Endocrine: As Per HPI. absent: Change in Body Appearance, Change in Libido, Cold Intolorance, Deepening of Voice, Excessive Sweating, Fatigue, Flushing, Heat Intolorance, Increase in Ring/Shoe/Hat Size, Palpitations, Polydipsia, Polyphagia, Polyuria, Other - Hematologic/Lymphatic Hematologic: As Per HPI. absent: Easy Bleeding, Easy Bruising, Lymphadenopathy , Other Past Patient History - Infectious Disease Hx of Infectious Diseases: None - Past Medical History & Family History Past Medical History?: Yes - Past Social History Smoking Status: Never Smoked Chewing Tobacco Use: No Cigar Use: No Alcohol: Occasional Drugs: Denies Home Situation {Lives}: With Family Domestic Violence: Negative - CARDIAC Hx Mitral Valve Prolapse: Yes - PULMONARY Hx Respiratory Disorders: Yes (PHTN) - NEUROLOGICAL Hx Neurological Disorder: No - HEENT Hx HEENT Problems: No - RENAL Hx Chronic Kidney Disease: No - ENDOCRINE/METABOLIC Hx Endocrine Disorders: No - HEMATOLOGICAL/ONCOLOGICAL Hx Blood Disorders: No Hx AIDS: No Hx Human Immunodeficiency Virus (HIV): No - INTEGUMENTARY Hx Dermatological Problems: No - MUSCULOSKELETAL/RHEUMATOLOGICAL Hx Musculoskeletal Disorders: No Hx Falls: No - GASTROINTESTINAL Hx Gastrointestinal Disorders: No - GENITOURINARY/GYNECOLOGICAL Hx Genitourinary Disorders: No - PSYCHIATRIC Hx Psychophysiologic Disorder: No Hx Substance Use: No - SURGICAL HISTORY Hx Surgeries: No - ANESTHESIA Hx Anesthesia: Yes Hx Anesthesia Reactions: No Hx Malignant Hyperthermia: No Has any member of the family had a problem w/ anesthesia?: No Meds Allergies/Adverse Reactions: Allergies Allergy/AdvReac Type Severity Reaction Status Date / Time No Known Allergies Allergy Verified 06/27/16 17:19 - Medications Medications: Current Medications Acetazolamide (Diamox Sequels 500 Mg Sr Cap) 500 mg PO DAILY MEG Docusate Sodium (Colace) 100 mg PO DAILY MEG Enoxaparin Sodium (Lovenox) 40 mg SC DAILY [facility] PRN Reason: Protocol Last Admin: 12/13/16 11:36 Dose: 40 mg Ferrous Sulfate (Feosol) 325 mg PO DAILY MEG Furosemide (Lasix) 20 mg PO DAILY [facility] Last Admin: 12/13/16 11:34 Dose: 20 mg Physical Exam - Constitutional Appears: Non-toxic - Head Exam Head Exam: ATRAUMATIC, NORMAL INSPECTION, NORMOCEPHALIC - Eye Exam Eye Exam: EOMI, Normal appearance, PERRL. absent: Conjunctival injection, Nystagmus, Periorbital swelling, Periorbital tenderness, Scleral icterus Pupil Exam: NORMAL ACCOMODATION, PERRL. absent: Fixed, Irregular, Miosis, Mydriatic, Unequal - ENT Exam ENT Exam: Mucous Membranes Moist, Normal Exam. absent: Mucous Membranes Dry, Normal External Ear Exam, Normal Oropharynx, TM's Normal Bilaterally - Neck Exam Neck exam: Positive for: Normal Inspection. Negative for: Full Rom, Lymphadenopathy, Meningismus, Tenderness, Thyromegaly - Respiratory Exam Respiratory Exam: Clear to Auscultation Bilateral, NORMAL BREATHING PATTERN. absent: Accessory Muscle Use, Chest Wall Tenderness, Decreased Breath Sounds, Prolonged Expiratory Phase, Rales, Rhonchi, Wheezes, Respiratory Distress, Stridor - Cardiovascular Exam Cardiovascular Exam: REGULAR RHYTHM, +S1, +S2, Systolic Murmur. absent: Bradycardia, Tachycardia, Clicks, Diastolic murmur, Gallop, Irregular Rhythm, JVD, RRR, Rubs, +S4 Additional comments: HARSH HOLOSYS MURMUR LOUDEST AT [place]PEX AND RADIATING TO BASE. NO R/G. NO THRILLS OR HEAVES. - GI/Abdominal Exam GI & Abdominal Exam: Normal Bowel Sounds, Soft - Rectal Exam Rectal Exam: Deferred - Extremities Exam Extremities exam: Positive for: normal inspection. Negative for: calf tenderness, full ROM, joint swelling, normal capillary refill, pedal edema, tenderness, pedal pulses present - Back Exam Back exam: NORMAL INSPECTION. absent: CVA tenderness (L), CVA tenderness (R), FULL ROM, muscle spasm, paraspinal tenderness, rash noted, tenderness, vertebral tenderness - Neurological Exam Neurological exam: Alert, Altered, CN II-XII Intact, Normal Gait, Oriented x3, Reflexes Normal - Psychiatric Exam Psychiatric exam: Normal Affect, Normal Mood - Skin Skin Exam: Dry, Intact, Normal Color, Warm Results - Vital Signs Recent Vital Signs: Last Vital Signs Temp 98.6 F 12/13/16 20:03 Pulse 89 12/13/16 20:03 Resp 14 12/13/16 20:03 BP 128/94 H 12/13/16 20:03 Pulse Ox 98 12/13/16 20:03 - Labs Result Diagrams: 12/13/16 05:00 12/13/16 05:00 Labs: Laboratory Results - last 24 hr 12/12/16 12/12/16 12/12/16 13:18 19:57 19:57 WBC RBC Hgb Hct MCV MCH MCHC RDW Plt Count ESR Sodium Potassium Chloride Carbon Dioxide Anion Gap BUN Creatinine Est GFR ( Amer) Est GFR (Non-Af Amer) POC Glucose (mg/dL) 113 H Random Glucose Calcium Total Bilirubin AST ALT Alkaline Phosphatase C-React Prot High Sens 14.17 H Total Protein Albumin Globulin Albumin/Globulin Ratio Triglycerides Cholesterol LDL Cholesterol Direct HDL Cholesterol Vitamin B12 Thyroxine (T4) TSH 3rd Generation Prolactin 23.0 H RPR 12/12/16 12/12/16 12/13/16 19:57 20:55 05:00 WBC 9.4 RBC 4.71 Hgb 9.4 L Hct 31.1 L MCV 66.1 L MCH 20.1 L MCHC 30.4 L RDW 21.7 H Plt Count 305 ESR 15 Sodium Potassium Chloride Carbon Dioxide Anion Gap BUN Creatinine Est GFR ( Amer) Est GFR (Non-Af Amer) POC Glucose (mg/dL) Random Glucose Calcium Total Bilirubin AST ALT Alkaline Phosphatase C-React Prot High Sens Total Protein Albumin Globulin Albumin/Globulin Ratio Triglycerides Cholesterol LDL Cholesterol Direct HDL Cholesterol Vitamin B12 Thyroxine (T4) TSH 3rd Generation Prolactin RPR Nonreactive 12/13/16 05:00 WBC RBC Hgb Hct MCV MCH MCHC RDW Plt Count ESR Sodium 139 Potassium 4.0 Chloride 107 Carbon Dioxide 23 Anion Gap 13 BUN 15 Creatinine 0.9 Est GFR ( Amer) > 60 Est GFR (Non-Af Amer) > 60 POC Glucose (mg/dL) Random Glucose 83 Calcium 8.5 Total Bilirubin 1.4 H AST 32 ALT 43 Alkaline Phosphatase 85 C-React Prot High Sens Total Protein 6.7 Albumin 3.6 Globulin 3.0 Albumin/Globulin Ratio 1.2 Triglycerides 74 Cholesterol 110 LDL Cholesterol Direct 75 HDL Cholesterol 22 L Vitamin B12 860 Thyroxine (T4) 14.5 H TSH 3rd Generation 1.26 Prolactin RPR - EKG Data EKG Interpreted by: Myself EKG shows normal: Sinus rhythm Rate: Normal - Impressions Impression: LAE AND MILDLY PROLONGED QTC. CXR REVEALS ENLARGED CARDIAC SILHOUETTE, WITH LAE AND MILD PULM MARKINGS. Assessment & Plan (1) Mitral regurgitation Status: Acute (2) Syncope Status: Acute (3) Anemia Status: Chronic (4) Pulmonary hypertension Status: Chronic (5) LAE (left atrial enlargement) Status: Acute - Assessment and Plan (Free Text) Plan: PHYSICAL EXAM IS SUSPICIOUS FOR SIGNIFICANT MR WITH LAE, PHTN AND PULM CONGESTION. SHE IS ON DIURETICS AND IS PRERENAL WITH A NORMAL BP. PT SHOULD HAVE ECHO TO EVAL VALVES AND IVC. IF MVR IS SIGNIFICANT THEN MAY NEED HEBERT. HER SYNCOPE COULD BE VOLUME RELATED, HOWEVER ARRYTHMIA AND ISCHEMIA CANNOT BE RULED OUT. NO ARRYTHMIAS ON TELE THUS FAR. WOULD PERFORM EXERCISE ST TO ASSESS FOR ARRYTHMIA OR ISCHEMIA. IF SX PERSIST WOULD RECOMMEND OUTPT HOLTER AND TILT TABLE. 90 MIN TOTAL CARE TIME.
--- NOTE | 2016-12-14 04:30 | CON ---
DATE: 12/13/2016 REASON FOR CONSULTATION: Possible seizures. CHIEF COMPLAINT: The patient was brought in with a history of fall at home. Following this, the patient did have urinary as well as fecal incontinence at the scene. From neurological point of view, I was called into evaluate her for further management. HISTORY OF PRESENT ILLNESS: Ms. Guillermina Gordon is a 36-year-old, moderately obese, right-handed female presenting with second episode of syncopal attack yesterday. She claims that after yelling at her 6-year-old son, she went into the kitchen, and on holding the chair, the chair moved, she landed on the floor and hit the floor, some part of the chair on her nose. Following this fall, the fall was witnessed by her 8-year-old son. This fall associated with loss of consciousness with bowel and bladder incontinence at the scene. This never happened before; however, she admits another episode happened while she was at work four years ago with no reason. She came to the hospital, she did have workup, and no diagnosis was made and she was sent home. She also is stating that she does have recurrent headache associating with some blurriness of the vision on the left eye. At this time, she does not have any complaints. PAST MEDICAL HISTORY: Recurrent migraine, syncope, and mitral valve prolapse. PERSONAL HISTORY: Denies smoking or alcohol use. REVIEW OF SYSTEMS: A 16-point systems have been reviewed from neuro, loss of consciousness. MEDICATIONS: Ferrous sulfate, Lasix, and Lovenox. PHYSICAL EXAMINATION: VITAL SIGNS: Blood pressure 131/90,mean arterial pressure of 108, respiratory of 16, temperature 98.1, and pulse rate of 91 and regular. NECK: Supple. No carotid bruit. HEART: Sounds regular. CHEST: Fair air entry. EXTREMITIES: No edema in legs. NEUROLOGIC: Mental status examination: She is awake, alert, oriented to person, place and time. Speech is clear. Naming, repetition, fluency, comprehension all within normal. Cranial nerve examination: Pupils reactive to light. Extraocular movement normal. No nystagmus. No facial sensory deficit. No facial asymmetry. Hearing is normal. Tongue is midline. Good gag. Motor examination: Outstretched hand with eyes closed, no drift is noted. Power is symmetric on either side. Deep tendon reflexes are absent throughout. Plantars are downgoing. Sensory examination: Grossly intact. No cortical sensory loss. Coordination is normal. Gait, broad-based gait. SKIN: From the fall, she had abrasion of her nose. No skull tenderness. WORKUP: CT of the head reviewed by me. No acute pathology is noted. MRI of the brain just done, reviewed by me as well. No diffusion-weighted image mismatch noted. Ventricles are normal in size. No Arnold-Chiari malformation. EKG, normal sinus rhythm. BLOOD WORKUP: WBC 9.4, hemoglobin 9.4, hematocrit 31.1, and platelets 305. PT 13.8, INR 1.3, and PTT 25.5. D-dimer 1024. Sodium 139, potassium 4 chloride 107, bicarbonate 23, BUN 13, and GFR more than 60. Troponin 0.012. CRP 14.17. ESR 15. Cholesterol 110. LDL 22. B12 860. TSH 1.16. Prolactin 23. Urinalysis, few rbc's. RPR negative. Toxicology screen negative. CONCLUSION: 1. Guillermina Gordon has been presenting with no clear evidence of seizures; however, she did fall and lost her consciousness. The head electroencephalogram also reviewed by me does not show any electrophysiologic seizures. No focal slowing. 2. The current examination does not show any sign suggestive of seizures. The patient also showed evidence of possible pseudotumor cerebri (benign intracranial hypertension). She does have history of chronic migraine and visual disturbances on her left eye. 3. The patient is also suffering from abnormal blood count including anemia and coagulopathy including positive D-dimers. 4. From neurological point of view, I would like to put her Diamox Sequel 250 mg twice a day. No further workup is needed from neurological point of view. The patient will be followed closed with you. ADDENDUM: I do not want to add her any antiplatelet drugs. The patient was also advised to come to see me as a followup visit. At that time, probably I would like to do extended-hour ambulatory electroencephalogram to further localizing electrophysiological activities. Faustino Tirado MD [facility]
--- NOTE | 2016-12-14 07:12 | PQF BMI ---
This form is a permanent part of the medical record 12/14/16 Dr. De La Torre, Would you please clarify if there is an associated diagnosis to go along with the elevated BMI or not . If yes please document the diagnosis along with the BMI. EMR has the patient listed as 5'6", weighing 262 pounds with a BMI of 42.3. Neurologist states the patient is moderately obese. Clarification of your documentation is requested to better reflect the severity of illness and intensity of treatment of your patient. Indicators present [x] Documented BMI>40 [] Nutritional/[employer] Supervisor consults [] 100 pounds or more over ideal body weight [x] Documented BMI / HT & WT: BMI 42.3, 5'6", weight 262 pounds [] Other : [] Location in the medical record that reflects the above clinical findings: [] Other Treatment Provided: [] PHYSICIAN'S RESPONSE Based on your medical judgment of the clinical indicators outlined above, please define the following: [] Morbid obesity with a BMI of 42.3 [] Morbid obesity with a BMI of ( please specify) [] Obesity with a BMI of 42.3 [] Obesity with a BMI of (please specify) [] Other [] [] No significance [] If unable to determine, please check the box, sign and date. Present On Admission (POA) Indicator: [] Present at the time of admission [] Not present at the time of admission [] Clinically Undetermined In responding to this query, please exercise your independent professional judgment. The fact that a question is asked does not imply that any particular answer is desired or expected. Thank you for your clarification on this documentation. If you have any questions please call:[phone] * Thank you, Niesha Brito RN CDMP [facility]
[2016-12-14 08:59] LABS: BASO # 0.1 K/uL (0.0-0.2); BASO % 1.1 % (0.0-2.0); EOS # 0.2 K/uL (0.0-0.7); HEMATOCRIT 31.3 % (34.0-47.0); LYMPH # 2.7 K/uL (1.0-4.3); LYMPH % 27.7 % (20.0-40.0); MEAN CELL VOLUME 65.7 fl (81.0-99.0); MEAN CORPUSCULAR HEMOGLOBIN 19.9 pg (27.0-31.0); MEAN CORPUSCULAR HGB CONC 30.3 g/dL (33.0-37.0); MONO # 0.7 K/uL (0.0-0.8); MONO % 7.3 % (0.0-10.0); NEUT % 61.9 % (50.0-75.0); NRBC % 0.1 % (0.0-0.0); RED CELL DISTRIBUTION WIDTH 21.8 % (11.5-14.5); WHITE BLOOD COUNT 9.7 K/uL (4.8-10.8)
[2016-12-14 09:11] LABS: BLOOD UREA NITROGEN 13 mg/dl (7-17); CALCIUM 8.8 mg/dL (8.4-10.2); CARBON DIOXIDE 24 mmol/L (22-30); CHLORIDE 104 mmol/L (98-107); GFR AFRICAN-AMERICAN > 60; GLUCOSE,RANDOM 88 mg/dL (65-105); MAGNESIUM 2.2 MG/DL (1.6-2.3); POTASSIUM 3.6 MMOL/L (3.6-5.0); SODIUM 140 mmol/l (132-148)
[2016-12-14] MEDS: Enoxaparin 40 mg Syringe SC SCH (09:36)
--- NOTE | 2016-12-14 11:32 | CP.PCM.CON ---
History of Present Illness - History of Present Illness History of Present Illness: 36 year old female with a history of chronic iron deficiency anemia, mitral valve prolapse, admitted with seizure. The patient reports to feelings of fatigue and dizziness which led to her passing out. She reports to chronic anemia and was told she had a uterine fibroid in the past. She does have heavy periods which she reports to making her feel more weak. She was prescribed oral iron but has not been able to tolerate them due to sever constipation. Past medical history: chronic iron deficiency anemia, menorrhagia, mitral valve prolapse Surgical history: None Family history: Denies hematologic and oncologic problems Social history: Denies tobacco, alcohol, and illicit drug use. Allergies: NKA Review of systems: All remaining review of systems including HEENT, cardiovascular, respiratory, gastrointestinal, genitourinary, musculoskeletal, dermatologic, neurologic, and psychiatric are negative unless mentioned in the HPI. Past Patient History - Infectious Disease Hx of Infectious Diseases: None - Past Medical History & Family History Past Medical History?: Yes - Past Social History Smoking Status: Never Smoked Chewing Tobacco Use: No Cigar Use: No Alcohol: Occasional Drugs: Denies Home Situation {Lives}: With Family Domestic Violence: Negative - CARDIAC Hx Mitral Valve Prolapse: Yes - PULMONARY Hx Respiratory Disorders: Yes (PHTN) - NEUROLOGICAL Hx Neurological Disorder: No - HEENT Hx HEENT Problems: No - RENAL Hx Chronic Kidney Disease: No - ENDOCRINE/METABOLIC Hx Endocrine Disorders: No - HEMATOLOGICAL/ONCOLOGICAL Hx Blood Disorders: No Hx AIDS: No Hx Human Immunodeficiency Virus (HIV): No - INTEGUMENTARY Hx Dermatological Problems: No - MUSCULOSKELETAL/RHEUMATOLOGICAL Hx Musculoskeletal Disorders: No Hx Falls: No - GASTROINTESTINAL Hx Gastrointestinal Disorders: No - GENITOURINARY/GYNECOLOGICAL Hx Genitourinary Disorders: No - PSYCHIATRIC Hx Psychophysiologic Disorder: No Hx Substance Use: No - SURGICAL HISTORY Hx Surgeries: No - ANESTHESIA Hx Anesthesia: Yes Hx Anesthesia Reactions: No Hx Malignant Hyperthermia: No Has any member of the family had a problem w/ anesthesia?: No Meds Allergies/Adverse Reactions: Allergies Allergy/AdvReac Type Severity Reaction Status Date / Time No Known Allergies Allergy Verified 06/27/16 17:19 - Medications Medications: Current Medications Acetazolamide (Diamox Sequels 500 Mg Sr Cap) 500 mg PO DAILY [facility] Docusate Sodium (Colace) 100 mg PO DAILY [facility] Enoxaparin Sodium (Lovenox) 40 mg SC DAILY [facility] PRN Reason: Protocol Last Admin: 12/14/16 09:36 Dose: 40 mg Ferrous Sulfate (Feosol) 325 mg PO DAILY [facility] Furosemide (Lasix) 10 mg PO DAILY [facility] Ondansetron HCl (Zofran Inj) 4 mg IVP Q4 PRN PRN Reason: Nausea/Vomiting Last Admin: 12/14/16 09:35 Dose: 4 mg Physical Exam - Head Exam Head Exam: ATRAUMATIC - Eye Exam Eye Exam: Normal appearance - ENT Exam ENT Exam: Mucous Membranes Dry - Respiratory Exam Respiratory Exam: NORMAL BREATHING PATTERN - Cardiovascular Exam Cardiovascular Exam: +S1, +S2 - GI/Abdominal Exam GI & Abdominal Exam: Normal Bowel Sounds - Extremities Exam Extremities exam: Positive for: normal inspection - Neurological Exam Neurological exam: Oriented x3 - Psychiatric Exam Psychiatric exam: Normal Affect, Normal Mood - Skin Skin Exam: Warm Results - Vital Signs Recent Vital Signs: Last Vital Signs Temp 98.2 F 12/14/16 10:20 Pulse 92 H 12/14/16 07:53 Resp 18 12/14/16 07:53 BP 137/97 H 12/14/16 07:53 Pulse Ox 100 12/14/16 07:53 - Labs Result Diagrams: 12/15/16 07:00 12/15/16 05:30 Labs: Laboratory Results - last 24 hr 12/12/16 12/12/16 12/12/16 19:57 19:57 19:57 WBC RBC Hgb Hct MCV MCH MCHC RDW Plt Count MPV Neut % (Auto) Lymph % (Auto) [place] % (Auto) Eos % (Auto) Baso % (Auto) Neut # Lymph # [place] # Eos # Baso # ESR Sodium Potassium Chloride Carbon Dioxide Anion Gap BUN Creatinine Est GFR ( Amer) Est GFR (Non-Af Amer) Random Glucose Calcium Magnesium C-React Prot High Sens 14.17 H Prolactin 23.0 H Serum Immunofixation Not detected RPR 12/12/16 12/14/16 12/14/16 19:57 08:38 08:38 WBC 9.7 RBC 4.76 Hgb 9.5 L Hct 31.3 L MCV 65.7 L MCH 19.9 L MCHC 30.3 L RDW 21.8 H Plt Count 309 MPV 9.0 Neut % (Auto) 61.9 Lymph % (Auto) 27.7 [place] % (Auto) 7.3 Eos % (Auto) 2.0 Baso % (Auto) 1.1 Neut # 6.0 Lymph # 2.7 [place] # 0.7 Eos # 0.2 Baso # 0.1 ESR 15 Sodium 140 Potassium 3.6 Chloride 104 Carbon Dioxide 24 Anion Gap 16 BUN 13 Creatinine 0.8 Est GFR ( Amer) > 60 Est GFR (Non-Af Amer) > 60 Random Glucose 88 Calcium 8.8 Magnesium 2.2 C-React Prot High Sens Prolactin Serum Immunofixation RPR Nonreactive Assessment & Plan (1) Anemia Assessment and Plan: will check ferritin, b12, folate, retic count to further characterize likely iron deficiency from menorrhagia will start IV Venofer Status: Chronic (2) Elevated d-dimer Assessment and Plan: no evidence of PE on CT angio large differential on reasons for elevation recommend ruling out mixed connective tissue disease Thank you for this interesting consult. Status: Acute
[2016-12-14] MEDS: acetaZOLAMIDE 500 mg SR Cap PO SCH (13:01)
--- NOTE | 2016-12-14 13:03 | CP.PCM.PN ---
Subjective - Date & Time of Evaluation Date of Evaluation: 12/14/16 Time of Evaluation: 12:59 - Subjective Subjective: pt seen and examined at bedside today. No acute events overnight, afebrile, w/o syncope or seizure activity, however pt was unable to complete exercise stress test due to severe SOB today. Pt was feeling ok before examination but during walking she became very short of breath with some mild chest tightness. Vitals and patient remained stable and did not require suppelemental O2 during episode and pt was sent back up to tele. No other complaints. Pt seen in tele again, lying comfortably, all symptoms resolved. Denies fever/chills, chest pain/ palpitations, N/V/D/C, urinary symptoms. Objective - Vital Signs/Intake and Output Vital Signs (last 24 hours): Temp Pulse Resp BP Pulse Ox 98.2 F 90 18 137/97 H 100 12/14/16 10:20 12/14/16 09:00 12/14/16 07:53 12/14/16 07:53 12/14/16 07:53 - Medications Medications: Current Medications Acetazolamide (Diamox Sequels 500 Mg Sr Cap) 500 mg PO DAILY [facility] Docusate Sodium (Colace) 100 mg PO DAILY [facility] Enoxaparin Sodium (Lovenox) 40 mg SC DAILY [facility] PRN Reason: Protocol Last Admin: 12/14/16 09:36 Dose: 40 mg Ferrous Sulfate (Feosol) 325 mg PO DAILY [facility] Furosemide (Lasix) 10 mg PO DAILY [facility] Ondansetron HCl (Zofran Inj) 4 mg IVP Q4 PRN PRN Reason: Nausea/Vomiting Last Admin: 12/14/16 09:35 Dose: 4 mg - Labs Labs: 12/14/16 08:38 12/14/16 08:38 PT 13.8 Seconds (9.8-13.1) H 12/12/16 13:43 INR 1.3 (0.9-1.2) H 12/12/16 13:43 APTT 25.5 Seconds (25.6-37.1) L 12/12/16 13:43 - Constitutional Appears: Non-toxic, No Acute Distress - Eye Exam Eye Exam: EOMI Pupil Exam: PERRL - ENT Exam ENT Exam: Mucous Membranes Moist - Respiratory Exam Respiratory Exam: Clear to Ausculation Bilateral, NORMAL BREATHING PATTERN. absent: Accessory Muscle Use, Chest Wall Tenderness, Rales - Cardiovascular Exam Cardiovascular Exam: REGULAR RHYTHM, RRR, +S1, +S2, Murmur. absent: Rubs - GI/Abdominal Exam GI & Abdominal Exam: Soft, Normal Bowel Sounds. absent: Tenderness - Extremities Exam Extremities Exam: absent: Calf Tenderness - Neurological Exam Neurological Exam: Alert, Awake, CN II-XII Intact, Oriented x3 - Psychiatric Exam Psychiatric exam: Normal Affect, Normal Mood - Skin Skin Exam: Dry, Intact. absent: Rash Assessment and Plan (1) Seizure-like activity Assessment & Plan: as per neurology, unlikely to be seizure related, has been started on acetazolamide and pt will f/u with neuro as outpatient. as per cardiology, exercise stress test unable to be compeleted, pt to go for ECHO, will f/u results Status: Acute (2) Anemia Assessment & Plan: seen by Dr. Diehl today, pt reports hx of heavy mentrual bleeds and father whom has severe RA. Iron studies ordered, will f/u and possibly supplement with IV Fe. SLE panel ordered with the combination of pulmonary HTN, hx of photosensitive rash, and elevated acute phase reactants w/o discerable cause. Status: Chronic (3) Pulmonary hypertension Assessment & Plan: Lasix 40 QD Status: Chronic (4) DVT prophylaxis Assessment & Plan: lovenox 40mg SC QD Status: Acute
--- NOTE | 2016-12-15 05:07 | CON ---
DATE: CARDIOLOGY CONSULTATION HISTORY OF PRESENT ILLNESS: The patient is 36 years old female, who is moderately obese, was admitted because of fainting spell while at home. The patient reports to me that she felt lightheaded and collapsed. The patient did experience both urinary and fecal incontinence. The patient does not recall experiencing palpitation. The patient was scheduled for a Myoview stress test and as the patient started to walk on a treadmill, she experienced severe shortness of breath and almost collapsed. The patient was taken to the chair and then a stretcher. The patient never lost consciousness and clinically was not in CHF. Rapid response was activated. The patient was brought to telemetry. SOCIAL HISTORY: Nonsmoker and nondrinker. MEDICATIONS: Diamox 500 mg daily, Colace 100 mg once a day, and Lasix 10 mg p.o. daily. PHYSICAL EXAMINATION: GENERAL: The patient is middle-aged female who does not appear to be in any distress. VITAL SIGNS: Blood pressure 131/89, heart rate 96, temperature 98.5, respirations 14. HEENT: Pale conjunctivae. CHEST: Clear. HEART: S1 and S2 regular. Grade 3/6 apical holosystolic murmur. ABDOMEN: Soft. EXTREMITIES: No edema. LABORATORY DATA: Hemoglobin and hematocrit 9.5 and 31.3. White count and platelet count are within normal limits. Today, SMA-7 is within normal limit. One set of troponin is negative. TSH level is within normal limits. T4 is elevated at 14.5. D-dimer is elevated at 1024. CT angiogram was negative for pulmonary embolism. Echocardiograph study performed in August of this year revealed normal ejection fraction. Severely dilated left atrium with severe mitral insufficiency. Chest x-ray revealed cardiomegaly with [id number] CHF. EKG revealed sinus rhythm with possible left atrial enlargement, prolonged QT interval, heart rate 92. ASSESSMENT: 1. Status post syncopal episode. 2. Severe mitral insufficiency. 3. Congestive heart failure. RECOMMENDATIONS: Start Lasix 20 mg intravenously daily. Discontinue oral Lasix. Continue acetazolamide. Obtain a repeat echocardiograph study. Start prophylactic subcutaneous Lovenox at 40 mg once a day and obtain venous Doppler of the lower extremities. CT scan of the head was unremarkable for acute findings. Carotid Doppler did not reveal significant disease and brain MRI revealed no acute intracranial abnormality. There was minimal supratentorial white matter change, to be nonspecific. Gamal Green MD
[2016-12-15 07:31] LABS: HEMATOCRIT 30.9 % (34.0-47.0); MEAN CELL VOLUME 66.5 fl (81.0-99.0); MEAN CORPUSCULAR HEMOGLOBIN 19.9 pg (27.0-31.0); RED CELL DISTRIBUTION WIDTH 21.7 % (11.5-14.5); WHITE BLOOD COUNT 10.6 K/uL (4.8-10.8)
[2016-12-15 07:41] LABS: ALB/GLOB RATIO 1.2 (1.0-2.1); ALKALINE PHOSPHATASE 84 U/L (38-126); ALT/SGPT 34 U/L (9-52); AST/SGOT 22 U/L (14-36); BILIRUBIN,TOTAL 1.9 mg/dl (0.2-1.3); BLOOD UREA NITROGEN 12 mg/dl (7-17); CALCIUM 8.7 mg/dL (8.4-10.2); CARBON DIOXIDE 20 mmol/L (22-30); CHLORIDE 108 mmol/L (98-107); GFR AFRICAN-AMERICAN > 60; GLUCOSE,RANDOM 83 mg/dL (65-105); POTASSIUM 3.7 MMOL/L (3.6-5.0); SODIUM 142 mmol/l (132-148)
[2016-12-15] MEDS: acetaZOLAMIDE 500 mg SR Cap PO SCH (08:52)
[2016-12-15] MEDS: Enoxaparin 40 mg Syringe SC SCH (08:54)
--- NOTE | 2016-12-15 10:39 | CP.PCM.PN ---
Subjective - Date & Time of Evaluation Date of Evaluation: 12/15/16 Time of Evaluation: 10:39 - Subjective Subjective: WANTS SECOND OPINION. Objective - Vital Signs/Intake and Output Vital Signs (last 24 hours): Temp Pulse Resp BP Pulse Ox 97.6 F 82 18 115/71 98 12/15/16 10:00 12/15/16 10:00 12/15/16 10:00 12/15/16 10:00 12/15/16 10:00 - Medications Medications: Current Medications Acetazolamide (Diamox Sequels 500 Mg Sr Cap) 500 mg PO DAILY [facility] Last Admin: 12/15/16 08:52 Dose: 500 mg Docusate Sodium (Colace) 100 mg PO DAILY [facility] Last Admin: 12/15/16 08:51 Dose: 100 mg Enoxaparin Sodium (Lovenox) 40 mg SC DAILY [facility] PRN Reason: Protocol Last Admin: 12/15/16 08:54 Dose: 40 mg Ferrous Sulfate (Feosol) 325 mg PO DAILY [facility] Last Admin: 12/15/16 08:52 Dose: 325 mg Furosemide (Lasix) 40 mg IV DAILY [facility] Last Admin: 12/15/16 08:52 Dose: 40 mg Ondansetron HCl (Zofran Inj) 4 mg IVP Q4 PRN PRN Reason: Nausea/Vomiting Last Admin: 12/14/16 09:35 Dose: 4 mg - Labs Labs: 12/15/16 07:00 12/15/16 05:30 PT 13.8 Seconds (9.8-13.1) H 12/12/16 13:43 INR 1.3 (0.9-1.2) H 12/12/16 13:43 APTT 25.5 Seconds (25.6-37.1) L 12/12/16 13:43 Assessment and Plan (1) Mitral regurgitation Status: Acute (2) Syncope Status: Acute (3) Anemia Status: Chronic (4) Pulmonary hypertension Status: Chronic (5) LAE (left atrial enlargement) Status: Acute - Assessment and Plan (Free Text) Plan: I WAS INFORMED THAT PT REQUESTED A SECOND OPINION. SUCH I WILL SIGN OFF. CALL PLACED TO DR RIVAS. MESSAGE LEFT.
--- NOTE | 2016-12-15 11:07 | CARD ---
APPROVED REPORT EXAM: Two-dimensional and M-mode echocardiogram with Doppler and color Doppler. Other Information Quality : GoodRhythm : NSR INDICATION Syncope 2D DIMENSIONS Left Atrium (2D)5.95 (1.6-4.0cm)IVSd1.24 (0.7-1.1cm) Aortic Root (2D)2.29 (2.0-3.7cm)LVDd6.17 (3.9-5.9cm) LVOT Diameter1.84 (1.8-2.4cm)PWd1.02 (0.7-1.1cm) IVSs1.58 (0.8-1.2cm)LVDs4.04 (2.5-4.0cm) FS (%) 34.5 %PWs1.42 (0.8-1.2cm) M-Mode DIMENSIONS Left Atrium (MM)4.90 (2.5-4.0cm)IVSd1.14 (0.7-1.1cm) Aortic Root3.04 (2.2-3.7cm)LVDd6.17 (4.0-5.6cm) Aortic Cusp Exc.2.05 (1.5-2.0cm)PWd1.17 (0.7-1.1cm) IVSs1.51 cmFS (%) 29 % LVDs4.37 (2.0-3.8cm)PWs0.84 cm Mitral Valve MV E Spnrvhkx948.8cm/sMV E Peak Gr.150mmHgMV DECEL [id number] MV A Drnhgvnt80.0cm/sMV PPW44qjX/A ratio3.7 MVA (PHT)4.82cm2 TDI Lateral E' Peak V12.55cm/sMedial E' Peak V10.19cm/sE/Lateral E'13.1 E/Medial E'16.2 Tricuspid Valve TR Peak [id number]/sRAP [id number] Peak Gr.45mmHg [id number] LEFT VENTRICLE The Left Ventricle is moderately dilated. There is normal left ventricular wall thickness. The left ventricular function is normal. The left ventricular ejection fraction is within the normal range. The Ejection Fraction is 65-70%. There is normal LV segmental wall motion. The left ventricular diastolic function is normal. No left ventricle thrombus noted on this study. There is no mass noted in the left ventricle. RIGHT VENTRICLE The right ventricle is normal size. There is normal right ventricular wall thickness. The right ventricular systolic function is normal. ATRIA The left atrium is moderately dilated. The right atrium is mildly dilated. AORTIC VALVE The aortic valve is normal in structure and function. No aortic regurgitation is present. There is no aortic valvular stenosis. There is no aortic valvular vegetation. MITRAL VALVE The mitral valve is normal in structure and function. There is no evidence of mitral valve prolapse. There is no mitral valve stenosis. Mitral regurgitation is severe. TRICUSPID VALVE The tricuspid valve is normal in structure and function. There is mild to moderate tricuspid regurgitation. Right ventricular systolic pressure is estimated at 55 mmHg. There is severe pulmonary hypertension. There is no tricuspid valve prolapse or vegetation. There is no tricuspid valve stenosis. PULMONIC VALVE The pulmonary valve is normal in structure and function. There is no pulmonic valvular regurgitation. There is no pulmonic valvular stenosis. GREAT VESSELS The aortic root is normal in size. The IVC is normal in size and collapses >50% with inspiration. PERICARDIAL EFFUSION The pericardium appears normal. There is no pleural effusion. <Conclusion> The Left Ventricle is moderately dilated. The left ventricular function is normal. The left ventricular ejection fraction is within the normal range. The Ejection Fraction is 65-70%. The left atrium is moderately dilated. The right atrium is mildly dilated. Mitral regurgitation is severe. There is mild to moderate tricuspid regurgitation. Right ventricular systolic pressure is estimated at 55 mmHg. There is severe pulmonary hypertension.
--- NOTE | 2016-12-15 13:37 | PN ---
DATE: 12/15/2016 SUBJECTIVE: The patient seen and examined. Interim events noted. Consults noted and appreciated. Cardiology and Neurology followup and intervention noted and appreciated. The patient remains in progressive care unit, on telemetry monitoring. The patient had an episode of syncope yesterday. Now feels okay. No chest pain. No shortness of breath. No dizziness. No seizures. No loss of consciousness. PHYSICAL EXAMINATION: GENERAL: The patient is in no acute distress. VITAL SIGNS: Stable. No orthostatic hypertension. HEART: S1 and S2, normal and regular. LUNGS: Good bilateral air exchange. ABDOMEN: Soft and nontender. EXTREMITIES: No edema. No calf swelling. No tenderness. No acute ischemia. CENTRAL NERVOUS SYSTEMS: Exam is essentially unchanged. DIAGNOSTIC DATA: Available diagnostic data reviewed. Telemetry monitoring does not reveal any significant arrhythmias. IMPRESSION: Overall, the patient is clinically stable. PLAN: As ordered. Michael De La Torre MD
--- NOTE | 2016-12-15 14:49 | CP.PCM.PN ---
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 Objective - Vital Signs/Intake and Output Vital Signs (last 24 hours): Temp Pulse Resp BP Pulse Ox 97.9 F 86 18 109/76 99 12/15/16 12:11 12/15/16 12:11 12/15/16 12:11 12/15/16 12:11 12/15/16 12:11 - Medications Medications: Current Medications Acetazolamide (Diamox Sequels 500 Mg Sr Cap) 500 mg PO DAILY [facility] Last Admin: 12/15/16 08:52 Dose: 500 mg Docusate Sodium (Colace) 100 mg PO DAILY [facility] Last Admin: 12/15/16 08:51 Dose: 100 mg Enoxaparin Sodium (Lovenox) 40 mg SC DAILY [facility] PRN Reason: Protocol Last Admin: 12/15/16 08:54 Dose: 40 mg Ferrous Sulfate (Feosol) 325 mg PO DAILY [facility] Last Admin: 12/15/16 08:52 Dose: 325 mg Furosemide (Lasix) 40 mg IV DAILY [facility] Last Admin: 12/15/16 08:52 Dose: 40 mg Iron Sucrose 200 mg/ Sodium (Chloride) 110 mls @ 110 mls/hr IVPB DAILY [facility] Stop: 12/20/16 14:31 Ondansetron HCl (Zofran Inj) 4 mg IVP Q4 PRN PRN Reason: Nausea/Vomiting Last Admin: 12/14/16 09:35 Dose: 4 mg - Labs Labs: 12/15/16 07:00 12/15/16 05:30 PT 13.8 Seconds (9.8-13.1) H 12/12/16 13:43 INR 1.3 (0.9-1.2) H 12/12/16 13:43 APTT 25.5 Seconds (25.6-37.1) L 12/12/16 13:43 - Head Exam Head Exam: ATRAUMATIC - Eye Exam Eye Exam: Normal appearance - ENT Exam ENT Exam: Mucous Membranes Dry - Respiratory Exam Respiratory Exam: NORMAL BREATHING PATTERN - Cardiovascular Exam Cardiovascular Exam: +S1, +S2 - GI/Abdominal Exam GI & Abdominal Exam: Normal Bowel Sounds Assessment and Plan (1) Anemia Assessment & Plan: rule out iron deficiency iron w/u sent on Venofer Status: Chronic (2) Elevated d-dimer Assessment & Plan: rule out mixed connective tissue disease Status: Acute
--- NOTE | 2016-12-15 17:31 | PN ---
SUBJECTIVE: The patient denies any chest pain or shortness of breath. PHYSICAL EXAMINATION: VITAL SIGNS: Blood pressure 109/76, heart rate 86, temperature 97.9, respirations 18. HEENT: Normocephalic. CHEST: Clear. HEART: S1 and S2 regular. Grade 4/6 holosystolic apical precordial murmur. ABDOMEN: Soft. EXTREMITIES: No edema. LABORATORY DATA: Hemoglobin and hematocrit 9.3 and 30.9. White count and platelet count are within normal limits. Today, SMA-7 is within normal limit except for carbon dioxide of 20 and chloride 108. Echocardiograph study revealed severe mitral insufficiency and severe pulmonary hypertension. Normal ejection fraction. ASSESSMENT: 1. Severe mitral insufficiency. 2. Congestive heart failure based on the chest x-ray as well as clinical findings. RECOMMENDATIONS: Continue Lasix 20 mg intravenously daily, Lovenox 20 mg subcutaneous once a day, Diamox 500 mg daily Although I was asked to be computer systems consultant on the case and treated by Dr. Lewis, I just noted that Dr. Lewis has rounded on the patient. So any further cardiac workup and cardiac management will be left up to Dr. Lewis. Gamal Green MD
--- NOTE | 2016-12-15 18:05 | US ---
PROCEDURE: Bilateral lower extremity venous duplex Doppler. HISTORY: r/o DVT COMPARISON: Comparison is made to the previous study dated 09/18/2011 TECHNIQUE: Bilateral common femoral, superficial femoral, popliteal and posterior tibial veins were evaluated. Flow was assessed with color Doppler, compressibility, assessment of phasic flow and augmentation response. FINDINGS: COMMON FEMORAL VEIN: Right CFV: Unremarkable. Left CFV: Unremarkable. SUPERFICIAL FEMORAL VEIN: Right SFV: Unremarkable. Left SFV: Unremarkable. POPLITEAL VEIN: Right Popliteal: Unremarkable. Left Popliteal: Unremarkable. POSTERIOR TIBIAL VEIN: Right PTV: Unremarkable. Left PTV: Unremarkable. OTHER FINDINGS: None. IMPRESSION: No evidence of deep venous thrombosis.
[2016-12-16 06:49] LABS: HEMATOCRIT 33.2 % (34.0-47.0); MEAN CELL VOLUME 66.5 fl (81.0-99.0); MEAN CORPUSCULAR HEMOGLOBIN 19.5 pg (27.0-31.0); MEAN CORPUSCULAR HGB CONC 29.4 g/dL (33.0-37.0); RED CELL DISTRIBUTION WIDTH 21.8 % (11.5-14.5); WHITE BLOOD COUNT 12.2 K/uL (4.8-10.8)
[2016-12-16 07:14] LABS: ALB/GLOB RATIO 1.2 (1.0-2.1); ALKALINE PHOSPHATASE 86 U/L (38-126); ALT/SGPT 33 U/L (9-52); AST/SGOT 22 U/L (14-36); BILIRUBIN,TOTAL 1.3 mg/dl (0.2-1.3); BLOOD UREA NITROGEN 13 mg/dl (7-17); CALCIUM 8.7 mg/dL (8.4-10.2); CARBON DIOXIDE 20 mmol/L (22-30); CHLORIDE 109 mmol/L (98-107); GFR AFRICAN-AMERICAN > 60; GLUCOSE,RANDOM 96 mg/dL (65-105); POTASSIUM 3.3 MMOL/L (3.6-5.0); SODIUM 143 mmol/l (132-148); TOTAL PROTEIN 7.2 G/DL (6.3-8.2)
[2016-12-16] MEDS: acetaZOLAMIDE 500 mg SR Cap PO SCH (08:19)
[2016-12-16] MEDS: Enoxaparin 40 mg Syringe SC SCH (08:19)
[2016-12-16] MEDS ORDERED: Potassium Chloride 20 mEq ER Tab PO ONE (11:45)
[2016-12-16] MEDS: Apap-Butalbital-Caffeine 325-50-40mg Tab PO PRN (11:51)
[2016-12-16 17:20] LABS: FOLATE 11.3 ng/mL
--- NOTE | 2016-12-17 01:14 | CP.PCM.PN ---
Subjective - Date & Time of Evaluation Date of Evaluation: 12/16/16 Time of Evaluation: 16:00 - Subjective Subjective: Feels weak Objective - Vital Signs/Intake and Output Vital Signs (last 24 hours): Temp Pulse Resp BP Pulse Ox 97.9 F 84 19 93/63 L 99 12/16/16 23:49 12/16/16 23:49 12/16/16 23:49 12/16/16 23:49 12/16/16 23:49 - Medications Medications: Current Medications Acetaminophen/Butalbital/Caffeine (Fioricet) 1 tab PO Q4 PRN PRN Reason: Headache Last Admin: 12/16/16 11:51 Dose: 1 tab Acetazolamide (Diamox Sequels 500 Mg Sr Cap) 500 mg PO DAILY [facility] Last Admin: 12/16/16 08:19 Dose: 500 mg Ampicillin (Ampicillin) 500 mg PO Q6 [facility] Last Admin: 12/16/16 21:58 Dose: 500 mg Docusate Sodium (Colace) 100 mg PO DAILY [facility] Last Admin: 12/16/16 08:18 Dose: 100 mg Ferrous Sulfate (Feosol) 325 mg PO DAILY [facility] Last Admin: 12/16/16 08:19 Dose: 325 mg Furosemide (Lasix) 40 mg IV DAILY [facility] Last Admin: 12/16/16 08:18 Dose: 40 mg Iron Sucrose 200 mg/ Sodium (Chloride) 110 mls @ 110 mls/hr IVPB DAILY [facility] Stop: 12/20/16 14:31 Last Admin: 12/16/16 08:17 Dose: 110 mls/hr Ondansetron HCl (Zofran Inj) 4 mg IVP Q4 PRN PRN Reason: Nausea/Vomiting Last Admin: 12/16/16 11:29 Dose: 4 mg - Labs Labs: 12/16/16 07:00 12/16/16 05:45 PT 13.8 Seconds (9.8-13.1) H 12/12/16 13:43 INR 1.3 (0.9-1.2) H 12/12/16 13:43 APTT 25.5 Seconds (25.6-37.1) L 12/12/16 13:43 - Head Exam Head Exam: ATRAUMATIC - Eye Exam Eye Exam: Normal appearance - ENT Exam ENT Exam: Mucous Membranes Dry - Respiratory Exam Respiratory Exam: NORMAL BREATHING PATTERN - Cardiovascular Exam Cardiovascular Exam: +S1, +S2 - GI/Abdominal Exam GI & Abdominal Exam: Normal Bowel Sounds - Extremities Exam Extremities Exam: Normal Inspection Assessment and Plan (1) Anemia Assessment & Plan: iron deficiency on Venofer Status: Chronic (2) Elevated d-dimer Status: Acute
[2016-12-17] MEDS: Apap-Butalbital-Caffeine 325-50-40mg Tab PO PRN (04:25)
[2016-12-17 05:41] LABS: HEMATOCRIT 36.7 % (34.0-47.0); MEAN CELL VOLUME 66.8 fl (81.0-99.0); MEAN CORPUSCULAR HEMOGLOBIN 19.8 pg (27.0-31.0); MEAN CORPUSCULAR HGB CONC 29.7 g/dL (33.0-37.0); RED CELL DISTRIBUTION WIDTH 21.4 % (11.5-14.5); WHITE BLOOD COUNT 11.8 K/uL (4.8-10.8)
[2016-12-17 05:56] LABS: ALB/GLOB RATIO 1.2 (1.0-2.1); ALKALINE PHOSPHATASE 105 U/L (38-126); ALT/SGPT 32 U/L (9-52); AST/SGOT 21 U/L (14-36); BILIRUBIN,TOTAL 1.3 mg/dl (0.2-1.3); BLOOD UREA NITROGEN 14 mg/dl (7-17); CALCIUM 9.1 mg/dL (8.4-10.2); CARBON DIOXIDE 18 mmol/L (22-30); CHLORIDE 110 mmol/L (98-107); GFR AFRICAN-AMERICAN > 60; GLUCOSE,RANDOM 85 mg/dL (65-105); POTASSIUM 4.1 MMOL/L (3.6-5.0); SODIUM 140 mmol/l (132-148); TOTAL PROTEIN 7.6 G/DL (6.3-8.2)
--- NOTE | 2016-12-17 06:45 | PQF CHF ---
This form is a permanent part of the medical record 12/17/16 Dr. Green, Admitted with seizure like activity. ECHO: Severe Pulmonary HTN and MR, EF 65-70 %. CXR: Poor inspiration with low lung volumes, crowded bronchvascular markings and mild bibasilar atelectasis. Started on IV Lasix. Would you please clarify the TYPE of CHF/Acuity/Etiology if known Clarification of your documentation is requested to better reflect the severity of illness and intensity of treatment of your patient. Indicators present [] Diagnosis of CHF and/or history of CHF [] BNP > 200 [] Imaging Finding of Pulmonary Edema /Pleural Effusions [] Fluid/Volume Overload [] Pitting edema [] Ejection Fraction < 40% (Indicative of Systolic Heart Failure) [] Ejection Fraction > 40% (Indicative of Diastolic Heart Failure) [] Dyspnea / Orthopenea / Paroxysmal Nocturnal Dyspnea [] Other: Location in the medical record that reflects the above clinical findings: [] Treatment Provided: [] PHYSICIAN'S RESPONSE Based on your medical judgment of the clinical indicators outlined above, are you treating this patient for a known or suspected: [] Acute CHF [] Systolic [] Diastolic [] Combined [] Chronic CHF [] Systolic [] Diastolic [] Combined [] Acute on Chronic CHF []Systolic [] Diastolic [] Combined [] CHF due hypertension [] Acute systolic []Chronic systolic [] Acute/ chronic systolic [] Other, please indicate: [] [] If Unable to Determine, please check the box, sign and date. Present On Admission (POA) Indicator: [] Present at the time of admission [] Not present at the time of admission [] Clinically Undetermined In responding to this query, please exercise your independent professional judgment. The fact that a question is asked does not imply that any particular answer is desired or expected. Thank you for your clarification on this documentation. If you have any questions please call:extension [phone] * Thank you, Niesha Brito RN CDMP [facility]
--- NOTE | 2016-12-17 06:53 | PQF GENQUE ---
This form is a permanent part of the medical record 12/17/16 Dr. De La Torre, Please clarify the associated diagnosis for which the ampicillin is being ordered. Admitted with seizure like activity. URINE CS 50,000-100,000 Beta Hemolytic Strept Group B. Patient has been started on Ampicillin. WBC varying 9.4-12.2. Afebrile. Clarification of your documentation is requested to better reflect the severity of illness and intensity of treatment of your patient. Indicators present [] Specify: [] [] Specify: [] [] Specify: [] [] Specify: [] Location in the medical record that reflects the above clinical findings: [] Treatment Provided: [] PHYSICIAN'S RESPONSE Based on your medical judgment of the clinical indicators outlined above please clarify the following: [] Practitioner response [] If unable to determine, please check the box, sign and date. Present On Admission (POA) Indicator: [] Present at the time of admission [] Not present at the time of admission [] Clinically Undetermined In responding to this query, please exercise your independent professional judgment. The fact that a question is asked does not imply that any particular answer is desired or expected. Thank you for your clarification on this documentation. If you have any questions please call:extension [phone] * Thank you, Niesha Brito RN CDMP [facility]
[2016-12-17 08:24] VITALS: PULSE 83; RESP 18
--- NOTE | 2016-12-17 08:40 | PN ---
DATE: 12/17/2016 SUBJECTIVE: The patient seen and examined. Interims events noted. Consults noted and appreciated. Cardiology and neurology followup and interventions noted and appreciated. The patient remains in progressive care unit on telemetry monitoring. The patient's headaches are much better. Denies any chest pain or shortness of breath. Currently, the patient has no nausea, vomiting, diarrhea, constipation, or dizziness. PHYSICAL EXAMINATION: GENERAL: The patient is in no acute distress. VITAL SIGNS: Stable. HEART: S1 and S2 normal, regular. LUNGS: Good bilateral air exchange. ABDOMEN: Soft, nontender, no organomegaly. No fluid. Bowel sounds are present. EXTREMITIES: No edema. No calf swelling. No tenderness. No acute ischemia. CENTRAL NERVOUS SYSTEM: Essentially unchanged. DIAGNOSTIC DATA: Available diagnostic data reviewed, telemetry monitoring does not reveal significant arrhythmias. ASSESSMENT: Overall, the patient's general medical condition is stable and improved. PLAN: As ordered. Michael De La Torre MD
[2016-12-17] MEDS: acetaZOLAMIDE 500 mg SR Cap PO SCH (08:49)
--- NOTE | 2016-12-17 09:14 | PN ---
DATE: 12/16/2016 SUBJECTIVE: The patient is seen and examined. Interims events noted. Consults noted and appreciated. The patient remains in progressive care unit on telemetry monitoring. Denies any specific complaint other than headache and no seizures, no dizziness, and no passing out. PHYSICAL EXAMINATION: GENERAL: The patient is in no acute distress. VITAL SIGNS: Stable. HEART: S1 and S2 normal and regular. LUNGS: Good bilateral air exchange. ABDOMEN: Soft and nontender. EXTREMITIES: No edema. No calf swelling. No tenderness. No acute ischemia. CENTRAL NERVOUS SYSTEM: Essentially unchanged. DIAGNOSTIC DATA: Available diagnostic data reviewed. Telemetry monitoring does not show significant arrhythmia. ASSESSMENT: Overall, patient's general medical condition is stable. PLAN: As ordered. Michael De La Torre MD
--- NOTE | 2016-12-17 09:50 | EEG ---
DATE: CONDITION OF THE RECORDING: This is a 16-channel electroencephalogram of awake and drowsy adult. The photic stimulation was performed. Hyperventilation was not performed. The resting electroencephalogram consists of low amplitude 9 to 12 Hz alpha activities noted at parietal and occipital leads. Later this activity somewhat well formed over right parietal and occipital leads to compare with left parietal and occipital leads. Some movement artifact contaminated with background rhythm. The photic stimulation did not evoke driving response noted at 2-20 Hz. IMPRESSION: This is a normal electroencephalogram of awake and drowsy adult. During the study, neither electroencephalographic paroxysmal activities nor focal slowing noted. If clinically indicated, the patient can be benefited of doing ambulatory extended-hour video electroencephalogram. That can be done as outpatient. Faustino Tirado MD
[2016-12-17 12:20] VITALS: BP 116/82; TEMP 97.9; O2SAT 98
[2016-12-17 14:06] LABS: RDW 22.8 % (11.0-15.0)
[2016-12-18 13:20] LABS: HEMOGLOBIN F <1.0 Percent (<2.0)
== END 2016-12-17 15:25 | disposition short-term general hospital (02) | DRG 889 ==
LOC: H.ER 12:39 → H.ERHOLD 17:03 → H.TEL 21:05 → OBSVTOIN 12-13 22:01
PROVIDERS: ADMIT Internal Medicine; ATTEND Internal Medicine
DX: R56.9 Unspecified convulsions (principal); D50.0 Iron deficiency anemia secondary to blood loss (chronic); I27.2 Other secondary pulmonary hypertension; D68.9 Coagulation defect, unspecified; Z68.41 Body mass index [BMI] 40.0-44.9, adult; I09.81 Rheumatic heart failure; I50.9 Heart failure, unspecified; E66.01 Morbid (severe) obesity due to excess calories; R32 Unspecified urinary incontinence; N39.0 Urinary tract infection, site not specified; N92.0 Excessive and frequent menstruation with regular cycle; I34.1 Nonrheumatic mitral (valve) prolapse; G43.909 Migraine, unspecified, not intractable, without status migrainosus; I51.7 Cardiomegaly; I34.0 Nonrheumatic mitral (valve) insufficiency; R55 Syncope and collapse; R15.9 Full incontinence of feces